=== PATIENT | female | born 1960 | race Caucasian/White ===

== ENCOUNTER 2018-09-14 13:06 | Emergency (ER) | payer BC, MEDICAID ==
[~2018-09-14] VITALS: Ht 162.6 cm; Wt 78.9 kg
--- NOTE | 2018-09-14 13:17 | NUR ---
58 Y/O FEMALE PLACED IN BED 3 C/O RIGHT HAND PAIN SECONDARY TO A FALL.
--- NOTE | 2018-09-14 14:55 | NUR ---
COLD PACK PLACED ON RIGHT HAND. X-RAY RESULTS BACK. NO FRACTURE SEEN. DX - RIGHT HAND SPRAIN. VELCRO SPLINT PLACED ON HAND. ACI GIVEN. PT TO FOLLOW UP WITH PMD IN TWO DAYS. DISCHARGED HOME.
[2018-09-14 14:57] VITALS: BP 160/72
== END 2018-09-14 15:01 | disposition home or self-care (01) ==
LOC: ER 13:09
DX: S63.8X1A Sprain of other part of right wrist and hand, initial encounter (principal); I10 Essential (primary) hypertension; E11.9 Type 2 diabetes mellitus without complications; W01.0XXA Fall on same level from slipping, tripping and stumbling without subsequent striking against object, initial encounter; Y93.89 Activity, other specified; Y92.002 Bathroom of unspecified non-institutional (private) residence as the place of occurrence of the external cause; Y99.8 Other external cause status
CPT/HCPCS: 73130-TC; A4606; Z7610

== ENCOUNTER 2019-07-24 17:50 | Emergency (ER) | payer MEDICAID ==
[~2019-07-24] VITALS: Ht 165.1 cm; Wt 78.9 kg
[2019-07-24 18:13] VITALS: BP 134/87
== END 2019-07-24 19:30 | disposition home or self-care (01) ==
LOC: ER 17:51
DX: B35.4 Tinea corporis (principal); I10 Essential (primary) hypertension; E11.9 Type 2 diabetes mellitus without complications

== ENCOUNTER 2022-07-28 10:44 | Inpatient (IN) | payer MEDICAID ==
[~2022-07-28] VITALS: Ht 157.5 cm; Wt 82.1 kg
--- NOTE | 2022-07-28 10:46 | NUR ---
BIBRA60 FROM HOME, FOUND ALTERED BY FAMILY, PT IS COVID POSITIVE. BLOOD SUGAR 600 ORDER CALLER PER EMS, ATTEMPED TO GET BLOOD GLUCOSE AND GLUCOMETER RED TOO HIGH TO READ. PT IS A&OX0, ABLE TO TRACT WITH HER EYES. PT ATTACHED TO MONITOR. DR ROJO AT BEDSIDE.
--- NOTE | 2022-07-28 10:55 | NUR ---
ADDITIONAL IV ESTABLIHSED L HAND 20G, R HAND 20G. LABD DRAWN AND COLLECTED AT BEDSIDE.
[2022-07-28] MEDS ORDERED: IV NS 0.9% 1,000 ML BAG IV ONE (11:00)
--- NOTE | 2022-07-28 11:10 | NUR ---
[address], 300CC URINE OUTPUT, URINE COLLECTED AND SENT
--- NOTE | 2022-07-28 11:12 | NUR ---
COVFANTASMA TESTC OLLECTED AND SENT
[2022-07-28 11:21] LABS: BASOPHILS # (AUTO) 0.2 K/uL (0.0-0.2); BASOPHILS % (AUTO) 0.7 % (0.0-2.0); EOSINOPHILS % (AUTO) 0.1 % (0.0-6.0); HEMATOCRIT 45 % (33-45); HEMOGLOBIN 13.8 g/dL (11.5-14.8); LYMPHOCYTES # (AUTO) 1.3 K/uL (0.8-4.8); LYMPHOCYTES % (AUTO) 6.1 % (20.0-44.0); MEAN CORPUSCULAR HGB CONC 31 g/dl (31.0-36.0); MEAN CORPUSCULAR VOLUME 97 fL (82-100); MONOCYTES # (AUTO) 1.5 K/uL (0.1-1.30); NEUTROPHILS # (AUTO) 18.6 K/uL (1.8-8.9); NEUTROPHILS % (AUTO) 86.1 % (43.0-81.0); PLATELET COUNT (AUTO) 282 K/uL (150-450); RED BLOOD CELL COUNT(AUTO) 4.61 MIL/uL (4.0-5.2); WHITE BLOOD COUNT (AUTO) 21.6 K/uL (4.3-11.0)
[2022-07-28 11:49] LABS: BILIRUBIN,URINE SMALL (NEGATIVE); COLOR,URINE YELLOW (YELLOW); LEUKOCYTE ESTERASE ,URINE NEGATIVE (NEGATIVE); NITRITE, URINE NEGATIVE (NEGATIVE); PH,URINE 5.5 (5.0-8.0); PROTEIN,URINE 100 mg/dl (NEGATIVE); UGLUCOSE >=1000 mg/dL (NEGATIVE); UROBILINOGEN,URINE 0.2 EU/dL (0.2)
[2022-07-28 11:55] LABS: ABG BASE EXCESS -30.3 mmol/L; ABG OXYGEN SATURATION 96.6 % (92.0-98.5); ABG PCO2 16.4 mmHg (35.0-45.0); ABG PH 6.837 (7.350-7.450); ABG PO2 130.9 mmHg (75.0-100.0); COHb 0.1 % (0.5-1.5); MetHb 0.4 % (0.0-1.5); O2Hb 96.1 % (94.0-97.0); SITE, ABG Left Radial; VENT MODE, BG Room Air
[2022-07-28] MEDS ORDERED: CEFTRIAXONE 1 G in IV D5W 50 ML IV ONE (12:00)
[2022-07-28 12:02] LABS: BACTERIA,URINE 1+ /HPF (None Seen); RBC,URINE 0-2 /HPF (0-2); YEAST,URINE Moderate /HPF (None Seen)
[2022-07-28 12:09] LABS: MAGNESIUM 3.1 mg/dL (1.8-2.4)
[2022-07-28] MEDS ORDERED: CEFTRIAXONE 1GM BAG (ER ONLY) 50 ML IV ONE (12:11)
[2022-07-28 12:24] LABS: ALANINE AMINOTRANSFERASE 39 U/L (12-78); ALBUMIN 3.3 g/dL (3.4-5.0); ALCOHOL, BLOOD < 3 mg/dL (0-0); ALKALINE PHOSPHATASE 136 U/L (46-116); ASPARTATE AMINOTRANSFERASE 37 U/L (15-37); BILIRUBIN,DIRECT 0.3 mg/dL (0.0-0.2); BILIRUBIN,TOTAL 0.8 mg/dL (0.2-1.0); CALCIUM, SERUM 8.7 mg/dL (8.5-10.1); CHLORIDE 93 mmol/L (98-107); CREATININE 2.1 mg/dL (0.6-1.3); POTASSIUM 4.2 mmol/L (3.5-5.1); SODIUM SERUM 134 mmol/L (136-145); UREA NITROGEN, BLOOD 40 mg/dL (7-18)
[2022-07-28 12:42] LABS: CARBON DIOXIDE 5 mmol/L (21-32); GLUCOSE 661 mg/dL (74-106)
[2022-07-28 12:43] LABS: ACETAMINOPHEN < 10 ug/ml (10-30)
[2022-07-28 12:45] LABS: PHOSPHORUS 8.8 mg/dL (2.5-4.9)
[2022-07-28] MEDS ORDERED: LORA-259 PO (12:50)
[2022-07-28] MEDS ORDERED: ICOS1CAP PO (12:50)
[2022-07-28] MEDS ORDERED: QUET200T84 PO (12:50)
[2022-07-28] MEDS ORDERED: FURO20TA4 PO (12:50)
[2022-07-28] MEDS ORDERED: METO50TA16 PO (12:50)
[2022-07-28] MEDS ORDERED: SITA100T PO (12:50)
[2022-07-28] MEDS ORDERED: LISI20TA30 PO (12:50)
[2022-07-28] MEDS ORDERED: METF-440 PO (12:50)
[2022-07-28] MEDS ORDERED: LOSA1TAB39 PO (12:50)
[2022-07-28] MEDS ORDERED: CITA40TA11 PO (12:50)
[2022-07-28] MEDS ORDERED: INSU100I26 SQ (12:50)
[2022-07-28] MEDS ORDERED: IV D5/ 0.9% NACL 1,000 ML IV PRN (13:00)
[2022-07-28] MEDS ORDERED: IV PREMIX NS +20MEQ KCL 1 L IV ONE (13:00)
[2022-07-28] MEDS ORDERED: INSULIN REGULAR, HUMAN 100 UNITS in IV NS 0.9% 100 ML IV PRN ×2 (13:00)
[2022-07-28 13:31] LABS: THYROID STIMULATING HORMONE 0.289 uIU/mL (0.358-3.74)
--- NOTE | 2022-07-28 13:33 | NUR ---
MOVE SHEET SUBMITTED.
[2022-07-28 14:01] LABS: MAGNESIUM 2.9 mg/dL (1.8-2.4)
--- NOTE | 2022-07-28 14:19 | NUR ---
EPIC PAGED, AWAITING HOSPITALIST CALL BACK
--- NOTE | 2022-07-28 14:30 | NUR ---
ACCUCHECK READ TOO HIGH TO READ >600, AWARE. LAB NOTIFIED TO DRAW GLUCOSE.
[2022-07-28] MEDS ORDERED: HYDROCODONE/APAP 5/325MG TABLET PO PRN (15:00)
[2022-07-28] MEDS ORDERED: ZOLPIDEM TARTRATE 5 MG TABLET PO PRN (15:00)
[2022-07-28] MEDS ORDERED: ONDANSETRON HCL/PF 4 MG/2 ML VIAL IVP PRN (15:00)
[2022-07-28] MEDS ORDERED: BLOOD SUGAR DIAGNOSTIC 1 EACH STRIP IN SCH (15:00)
[2022-07-28] MEDS ORDERED: ACETAMINOPHEN 325 MG TABLET PO PRN (15:00)
[2022-07-28] MEDS ORDERED: MAGNESIUM HYDROXIDE 30 ML UDC PO PRN (15:00)
[2022-07-28] MEDS ORDERED: MAG HYDROX/AL HYDROX/SIMETH 30 ML UDC PO PRN (15:00)
[2022-07-28] MEDS ORDERED: IV NS 0.9% 1,000 ML IV PRN (15:00)
[2022-07-28] MEDS ORDERED: Z GUARD REMEDY 4 OZ OINT TP PRN (15:00)
[2022-07-28 15:15] LABS: MAGNESIUM 2.9 mg/dL (1.8-2.4)
--- NOTE | 2022-07-28 15:35 | NUR ---
BLOOD GLUCOSE 542, TITRATED TO EFFECT PER PROTOCOL
[2022-07-28 15:47] LABS: CALCIUM, SERUM 7.7 mg/dL (8.5-10.1); CREATININE 2.1 mg/dL (0.6-1.3); POTASSIUM 5.4 mmol/L (3.5-5.1)
[2022-07-28 15:50] LABS: PHOSPHORUS 7.3 mg/dL (2.5-4.9)
--- NOTE | 2022-07-28 17:09 | NUR ---
SON RIGOBERTO CALLED AND LEFT CONTACT # [phone]
[2022-07-28 18:17] LABS: MAGNESIUM 2.5 mg/dL (1.8-2.4); PHOSPHORUS 2.5 mg/dL (2.5-4.9)
--- NOTE | 2022-07-28 20:00 | NUR ---
RECEIVED PT IN ROOM 5. PT IS AAOX0, ON BIPAP SETTINGS: IPAP 15, RATE 12, ITIME 0.80, EPAP 10, O2 30%. PRAJAPATI CATH INPLACE. CONNECTED TO MONITOR. ON INSULIN DRIP AT 7.5 VIA IV PUMP. PT IS COVID POSITIVE ISOLATION PRECAUTIONS IN PLACE. WILL CONTINUE TO MONITOR.
--- NOTE | 2022-07-28 20:00 | NUR ---
HANS COMPLETED, RESULTS GIVEN TO ZHENG COLE
[2022-07-28 20:09] LABS: ABG BASE EXCESS -25.8 mmol/L; ABG PCO2 14.2 mmHg (35.0-45.0); ABG PH 7.009 (7.350-7.450); ABG PO2 182.9 mmHg (75.0-100.0); COHb 0.3 % (0.5-1.5); MetHb 0.6 % (0.0-1.5); O2Hb 97.9 % (94.0-97.0); SITE, ABG Right Radial; VENT MODE, BG BIPAP 15/5 RR12 FIO2 30
[2022-07-28] MEDS ORDERED: SODIUM BICARBONATE SYR 50 MEQ/50 ML DISP.SYRIN ONE (20:40)
--- NOTE | 2022-07-28 20:56 | NUR ---
ACCUCHECK: 412, TITRATED TO 6.18 PER PROTOCOL
[2022-07-28] MEDS ORDERED: HEPARIN SODIUM, PORCINE 5000 UNITS/1 ML VIAL SQ SCH (21:00)
[2022-07-28] MEDS ORDERED: HEPARIN SODIUM, PORCINE 5000 UNITS/1 ML VIAL ONE (21:05)
--- NOTE | 2022-07-28 21:21 | NUR ---
REPORT GIVEN TO ISABEL OLEARY FOR JOSH
[2022-07-28] MEDS ORDERED: IV NS 0.9% 1,000 ML IV ONE (21:30)
[2022-07-28] MEDS ORDERED: SODIUM BICARBONATE SYR 50 MEQ/50 ML DISP.SYRIN IV ONE (21:30)
[2022-07-28] MEDS ORDERED: DEXTROSE 50%-WATER 50 ML DISP.SYRIN IV PRN (22:00)
--- NOTE | 2022-07-28 22:10 | NUR ---
RT Pt transferred to ICU #263 on NRB 15 lpm using ACLS protocol , pt placed back on bipap with alarms on and audible, plugged into red outlet and ambu bag at bedside.
[2022-07-28] MEDS: BLOOD SUGAR DIAGNOSTIC 1 EACH STRIP IN SCH ×2 (22:15→23:03)
[2022-07-28] MEDS: IV NS 0.9% 1,000 ML IV PRN (22:16)
[2022-07-28] MEDS: INSULIN REGULAR, HUMAN 100 UNIT in IV NS 0.9% 99 ML IV PRN ×2 (22:19)
[2022-07-28 22:30] VITALS: BP 141/86
[2022-07-28] MEDS ORDERED: INSULIN REGULAR, HUMAN 100 UNIT/ML 3 ML VIAL ONE (22:37)
--- NOTE | 2022-07-28 22:40 | NUR ---
RN NOTE Received a 61 year old female. patient is AOX0. Arousable to touch. Unable to answer questions at this time. lethargic. Breathing tachypneic. Patient placed on bipap. tolerating well with o2 saturation of 100 percent. Skin is cool and pale. right forearm 20g and left forearm 20g. intact. On IVF and insulin drip. indwelling rizo catheter draining alexander colored urine by gravity. skin assessment done. Turned and repositioned. bed low, in locked position. will continue to monitor.
[2022-07-28 23:06] LABS: CALCIUM, SERUM 7.5 mg/dL (8.5-10.1); POTASSIUM 3.7 mmol/L (3.5-5.1)
[2022-07-29] VITALS (32 sets, daily range): BP systolic 92–186; BP diastolic 28–129
[2022-07-29] MEDS: BLOOD SUGAR DIAGNOSTIC 1 EACH STRIP IN SCH ×24 (00:12→22:55)
[2022-07-29 03:19] LABS: CREATININE 1.4 mg/dL (0.6-1.3)
[2022-07-29 03:45] LABS: POTASSIUM 2.3 mmol/L (3.5-5.1)
[2022-07-29] MEDS: IV NS 0.9% 1,000 ML IV PRN ×3 (04:43→20:13)
[2022-07-29 05:11] LABS: BASOPHILS # (AUTO) 0.1 K/uL (0.0-0.2); BASOPHILS % (AUTO) 0.4 % (0.0-2.0); HEMATOCRIT 42 % (33-45); LYMPHOCYTES # (AUTO) 1.1 K/uL (0.8-4.8); LYMPHOCYTES % (AUTO) 6.6 % (20.0-44.0); MEAN CORPUSCULAR HGB CONC 31 g/dl (31.0-36.0); MEAN CORPUSCULAR VOLUME 98 fL (82-100); MONOCYTES # (AUTO) 1.1 K/uL (0.1-1.30); MONOCYTES % (AUTO) 6.8 % (2.0-12.0); NEUTROPHILS # (AUTO) 14.2 K/uL (1.8-8.9); NEUTROPHILS % (AUTO) 86.2 % (43.0-81.0); RED BLOOD CELL COUNT(AUTO) 4.28 MIL/uL (4.0-5.2); WHITE BLOOD COUNT (AUTO) 16.4 K/uL (4.3-11.0)
[2022-07-29 05:36] LABS: PLATELET COUNT (AUTO) 35 K/uL (150-450)
[2022-07-29 05:37] LABS: MAGNESIUM 2.5 mg/dL (1.8-2.4); PHOSPHORUS 1.6 mg/dL (2.5-4.9)
--- NOTE | 2022-07-29 05:57 | NUR ---
RT *Late Entry* Pt recvd in ER Bed #5 on Bipap 15/09 rate 12, Fio2 30% settings. Stat ABG completed. Transferred pt to ICU bed 263 at 22:00. Addendum: 07/29/22 at 0606 by ZULEMA WILSON RT Bipap settings changed to 15 rate 12, 30% in ICU. No respiratory distress noted.
[2022-07-29] MEDS: POTASSIUM CL. PREMIX PERIPHER. 50 ML IV SCH ×8 (06:01→13:35)
--- NOTE | 2022-07-29 08:00 | NUR ---
rn notes received patient on bipap 15/09, fio2-30%, patient confused. ,RT with ther patient at this time, and changed to the NC @4l, . iv access on left and right FA intact, infusing insulin 4 u, ns@150ml/hr, ans kcl 50ml/hr . rizo draining via gravity. position patient,, keep hob elevated. assist turn and reposition. will follow up.
--- NOTE | 2022-07-29 08:03 | NUR ---
PT. IS AWAKE AND FOLLOW COMMANDS PLACE INTO 4 LPM O2 FLOW VIA NASAL CANNULA. BIPAP ON STAND BY @ BEDSIDE. SPO2 99% HR 95 BPM RR 22 BPM Addendum: 07/29/22 at 0805 by JORGE MANDEL RT Amended: Links added.
[2022-07-29] MEDS ORDERED: PANTOPRAZOLE 40 MG VIAL IV SCH (09:00)
--- NOTE | 2022-07-29 09:30 | NUR ---
RN NOTES PATIENT GET INSERTED MIDLINE ON FREDO.
[2022-07-29 11:15] LABS: CALCIUM, SERUM 8.1 mg/dL (8.5-10.1); CREATININE 2.2 mg/dL (0.6-1.3); POTASSIUM 3.1 mmol/L (3.5-5.1)
[2022-07-29 11:29] LABS: CALCIUM, SERUM 8.1 mg/dL (8.5-10.1); CREATININE 2.2 mg/dL (0.6-1.3); POTASSIUM 3.1 mmol/L (3.5-5.1)
[2022-07-29 12:09] LABS: ABG BASE EXCESS -14.6 mmol/L; ABG PCO2 22.7 mmHg (35.0-45.0); ABG PH 7.276 (7.350-7.450); ABG PO2 91.7 mmHg (75.0-100.0); AaDO2 145.8 mmHg; COHb 0.4 % (0.5-1.5); MetHb 0.3 % (0.0-1.5); O2Hb 96.3 % (94.0-97.0); SITE, ABG Right Radial; VENT MODE, BG NASAL CANNULA
[2022-07-29] MEDS: CEFTRIAXONE 1 G in IV D5W 50 ML IV SCH (12:28)
[2022-07-29 12:38] LABS: BASOPHILS # (AUTO) 0.1 K/uL (0.0-0.2); BASOPHILS % (AUTO) 0.5 % (0.0-2.0); HEMATOCRIT 37 % (33-45); HEMOGLOBIN 12.5 g/dL (11.5-14.8); LYMPHOCYTES # (AUTO) 0.7 K/uL (0.8-4.8); MEAN CORPUSCULAR HGB CONC 34 g/dl (31.0-36.0); MEAN CORPUSCULAR VOLUME 89 fL (82-100); MONOCYTES # (AUTO) 1.2 K/uL (0.1-1.30); MONOCYTES % (AUTO) 7.9 % (2.0-12.0); NEUTROPHILS # (AUTO) 12.7 K/uL (1.8-8.9); NEUTROPHILS % (AUTO) 86.6 % (43.0-81.0); PLATELET COUNT (AUTO) 149 K/uL (150-450); RED BLOOD CELL COUNT(AUTO) 4.19 MIL/uL (4.0-5.2); WHITE BLOOD COUNT (AUTO) 14.7 K/uL (4.3-11.0)
[2022-07-29 15:36] LABS: BASOPHILS % (AUTO) 0.2 % (0.0-2.0); EOSINOPHILS % (AUTO) 0.1 % (0.0-6.0); HEMATOCRIT 39 % (33-45); HEMOGLOBIN 12.7 g/dL (11.5-14.8); LYMPHOCYTES # (AUTO) 0.5 K/uL (0.8-4.8); LYMPHOCYTES % (AUTO) 3.6 % (20.0-44.0); MEAN CORPUSCULAR HGB CONC 33 g/dl (31.0-36.0); MEAN CORPUSCULAR VOLUME 92 fL (82-100); MONOCYTES # (AUTO) 1.2 K/uL (0.1-1.30); MONOCYTES % (AUTO) 8.7 % (2.0-12.0); NEUTROPHILS # (AUTO) 12.3 K/uL (1.8-8.9); NEUTROPHILS % (AUTO) 87.4 % (43.0-81.0); PLATELET COUNT (AUTO) 133 K/uL (150-450); RED BLOOD CELL COUNT(AUTO) 4.23 MIL/uL (4.0-5.2); WHITE BLOOD COUNT (AUTO) 14.1 K/uL (4.3-11.0)
[2022-07-29 15:45] LABS: CALCIUM, SERUM 7.8 mg/dL (8.5-10.1); CREATININE 2.2 mg/dL (0.6-1.3); POTASSIUM 3.5 mmol/L (3.5-5.1)
[2022-07-29] MEDS ORDERED: NEUTRA PHOS 1 POWD.PACKET PO ONE (16:00)
[2022-07-29 16:07] LABS: C-REACTIVE PROTEIN 6.3 mg/dL (0.0-0.9)
[2022-07-29 16:12] LABS: D-DIMER 5.48 mg/L(FEU (0.17-0.50)
--- NOTE | 2022-07-29 18:48 | NUR ---
rn notes patient still confused , bs-178 mg/dl, infusing insulin drip per protocol, and ns @150 ml/hr. reinserted new rizo catheter, US of kidney, and bladder done. urine output was 500ml, and x2 Bm. needs attended and anticipated. call light within to reach, bed is lacked. endorsed oncoming nurse jacques.
--- NOTE | 2022-07-29 19:15 | NUR ---
RN OPENING NOTES RECEIVED PATIENT ON BED, CONFUSED, ON NASAL CANULA @ 4LPM SATING WITH 96%. AFEBRILE. PATIENT WITH FREDO MID LINE AND RIGHT HAND #20 PERIPHERAL LINE, PATENT, INTACT FLUSHED WITH NS, NO S/S OF INFILTRATION NOTED. WITH IVF NS @ 150 ML/HR. INSULIN DRIPS CURRENTLY @ 2.67 U/HR. PATIENT ON NPO. PRAJAPATI CATHETER PATENT INTACT DRAINING CLEAR YELLOW URINE VIA GRAVITY. ALL SAFETY PRECAUTION PROVIDED. REPOSITION Q2HRS. BED IN LOWEST POSITION. LOCKED. BED ALARM ARMED. CONTINUE TO MONITOR.
[2022-07-29] MEDS: FAMOTIDINE/PF INJ 20 MG/2 ML VIAL IV SCH (20:48)
[2022-07-29 20:55] LABS: CALCIUM, SERUM 7.4 mg/dL (8.5-10.1); CREATININE 2.1 mg/dL (0.6-1.3); POTASSIUM 3.1 mmol/L (3.5-5.1)
--- NOTE | 2022-07-29 21:15 | NUR ---
RN NOTES NOTIFIED MIRIAM CONNOLLY, REGARDING PATIENT LATEST BMP, PER ESME CHANGED IVF NS @ 150ML/HR TO D5 1/2 NS WITH 20MEQ KCL @ 150 ML/HR NOTED AND CARRIED OUT.
[2022-07-29] MEDS ORDERED: D5 IV ONE (21:33)
[2022-07-29] MEDS ORDERED: [UNRECOGNIZED DRUG - OTHER] IV ONE (21:33)
[2022-07-29] MEDS ORDERED: KCL IV ONE (21:33)
[2022-07-29] MEDS: Potassium Chloride 20 MEQ in IV D5/0.45 NACL 1,000 ML IV PRN (21:39)
[2022-07-29] MEDS: INSULIN REGULAR, HUMAN 100 UNIT in IV NS 0.9% 99 ML IV PRN ×2 (22:47)
[2022-07-30] VITALS (47 sets, daily range): BP systolic 116–203; BP diastolic 62–114
[2022-07-30] MEDS: BLOOD SUGAR DIAGNOSTIC 1 EACH STRIP IN SCH ×24 (00:07→23:04)
[2022-07-30 01:44] LABS: CALCIUM, SERUM 7.4 mg/dL (8.5-10.1); POTASSIUM 2.9 mmol/L (3.5-5.1)
--- NOTE | 2022-07-30 02:00 | NUR ---
RN NOTES NOTIFIED MIRIAM CONNOLLY REGARDING LATEST BMP WITH NEW ORDER KEEP INSULIN DRIP TO 2 UNITS/HR, KCL 20 MEQ IVP FOR 2HRS, BMP AFTER 4 HRS. NOTED AND CARRIED OUT
[2022-07-30] MEDS: POTASSIUM CL. PREMIX PERIPHER. 50 ML IV SCH ×6 (02:30→23:24)
[2022-07-30] MEDS: Potassium Chloride 20 MEQ in IV D5/0.45 NACL 1,000 ML IV PRN ×3 (04:40→17:57)
[2022-07-30 05:14] LABS: BASOPHILS % (AUTO) 0.1 % (0.0-2.0); HEMATOCRIT 32 % (33-45); HEMOGLOBIN 10.7 g/dL (11.5-14.8); LYMPHOCYTES # (AUTO) 0.5 K/uL (0.8-4.8); LYMPHOCYTES % (AUTO) 4.7 % (20.0-44.0); MEAN CORPUSCULAR HGB CONC 34 g/dl (31.0-36.0); MEAN CORPUSCULAR VOLUME 88 fL (82-100); MONOCYTES # (AUTO) 0.9 K/uL (0.1-1.30); MONOCYTES % (AUTO) 7.9 % (2.0-12.0); NEUTROPHILS # (AUTO) 9.7 K/uL (1.8-8.9); NEUTROPHILS % (AUTO) 87.3 % (43.0-81.0); PLATELET COUNT (AUTO) 116 K/uL (150-450); RED BLOOD CELL COUNT(AUTO) 3.58 MIL/uL (4.0-5.2); WHITE BLOOD COUNT (AUTO) 11.1 K/uL (4.3-11.0)
[2022-07-30 05:40] LABS: CALCIUM, SERUM 7.5 mg/dL (8.5-10.1); CREATININE 2.1 mg/dL (0.6-1.3); MAGNESIUM 2.1 mg/dL (1.8-2.4); POTASSIUM 3.2 mmol/L (3.5-5.1)
[2022-07-30 05:47] LABS: PHOSPHORUS 0.8 mg/dL (2.5-4.9)
--- NOTE | 2022-07-30 06:05 | NUR ---
RN NOTES NOTIFIED MIRIAM CONNOLLY REGARDING LATEST BMP WITH NEW ORDER CONTINUE TO USE THE INSULIN PROTOCOL, KCL 20 MEQ IVP FOR 2HRS NOTED AND CARRIED OUT
--- NOTE | 2022-07-30 06:25 | NUR ---
RN NOTES PHARMACY WILL REPLACED PHOSPHORUS, SPOKE TO LUCY.
--- NOTE | 2022-07-30 08:00 | NUR ---
RN NOTES RECEIVED PATIENT A/A/O X1, KYRGYZ SPEAKER, NO ACUTE RESPIRATORY DISTRESS, ON O2-4LNC, PATIENT COUGHING, NO SECRETION NOTED , TURN AND REPOSTION SELF. IV ACCESS ON FREDO MIDLINE INTACT. INFUSING INSULIN DRIP 4.81 U, BS-321,, AND ALSO INFUSING NS WITH 20MEQ OF KCL @ 150 ML/HR. REPLACING KCL 50 ML/HR INTACT. PRAJAPATI DRAINING VIA GRAVITY. BED ALARM ON, PATIENT ON ISOLATION PRECAUTION. CALL LIGHT WITHIN TO REACH. WILL FOLLOW UP.
[2022-07-30 08:06] LABS: IMMUNOGLOBULIN A, SERUM 195 mg/dL (87-352); IMMUNOGLOBULIN G, SERUM 607 mg/dL (586-1602); IMMUNOGLOBULIN M, SERUM 84 mg/dL (26-217)
[2022-07-30] MEDS: POTASSIUM PHOSPHATE MM 7.5 MMOL in IV NS 0.9% 100 ML IV SCH ×2 (08:42→12:41)
[2022-07-30] MEDS: FAMOTIDINE/PF INJ 20 MG/2 ML VIAL IV SCH (08:58)
[2022-07-30 09:32] LABS: CALCIUM, SERUM 7.8 mg/dL (8.5-10.1); POTASSIUM 3.6 mmol/L (3.5-5.1)
[2022-07-30 10:07] LABS: *ANA ANTI-CENTROMERE B AB <0.2 AI (0.0-0.9); *ANA ANTI-DNA(DS) AB, QN <1 IU/mL (0-9); *ANA ANTI-JO-1 <0.2 AI (0.0-0.9); *ANA ANTICHROMATIN ANTIBODY <0.2 AI (0.0-0.9); *ANA RNP ANTIBODIES <0.2 AI (0.0-0.9); *ANA SJOGREN'S ANTI-SS-A <0.2 AI (0.0-0.9); *ANA SJOGREN'S ANTI-SS-B <0.2 AI (0.0-0.9); *ANAANTI-SCLERODERMA-70 AB <0.2 AI (0.0-0.9); *ANASMITH AB <0.2 AI (0.0-0.9)
[2022-07-30 10:12] LABS: BILIRUBIN,URINE NEGATIVE (NEGATIVE); COLOR,URINE YELLOW (YELLOW); LEUKOCYTE ESTERASE ,URINE NEGATIVE (NEGATIVE); NITRITE, URINE NEGATIVE (NEGATIVE); PROTEIN,URINE TRACE mg/dl (NEGATIVE); UGLUCOSE 100 MG/DL mg/dL (NEGATIVE); UROBILINOGEN,URINE 0.2 EU/dL (0.2)
--- NOTE | 2022-07-30 10:29 | NUR ---
rn notes patient bp- 180/93, p-68, get TO order from hospitalist Dr cornell hydralazine 10ml iv push prn bps->160. order taken and carried out.
[2022-07-30 10:55] LABS: BACTERIA,URINE Few /HPF (None Seen); RBC,URINE 21-50 /HPF (0-2); SQUAMOUS EPITHELIAL CELL,UR Few /HPF (None Seen); URIC ACID CRYSTALS,URINE Few /HPF (None Seen); YEAST,URINE Few /HPF (None Seen)
[2022-07-30] MEDS: hydrALAZINE HCL IV 20 MG VIAL IV PRN ×2 (11:08→22:16)
--- NOTE | 2022-07-30 11:08 | NUR ---
rn notes administered hydralazine 10ml prn iv push , bp-182/82, p-84, will follow up.
[2022-07-30] MEDS: FLUCONAZOLE IN NS 100 MG in PREMIX 1 EA IV SCH ×2 (11:29)
[2022-07-30] MEDS: CEFTRIAXONE 1 G in IV D5W 50 ML IV SCH (12:04)
[2022-07-30 12:43] LABS: CALCIUM, SERUM 7.8 mg/dL (8.5-10.1); CREATININE 1.9 mg/dL (0.6-1.3); POTASSIUM 3.6 mmol/L (3.5-5.1)
[2022-07-30 13:07] LABS: *SPE ALPHA-1-GLOBULIN 0.2 g/dL (0.0-0.4); *SPE ALPHA-2-GLOBULIN 0.9 g/dL (0.4-1.0); *SPE BETA GLOBULIN 0.6 g/dL (0.7-1.3); *SPE M-SPIKE Not Observed g/dL (Not Observed)
--- NOTE | 2022-07-30 15:36 | NUR ---
RN NOTES BP-184/84, P-86, CALLED Dr NAZARIO AND GET NEW ORDER CLONIDINE 0.1MG PO PRN Q8HR BP>160. ORDER TAKEN AND CARRIED OUT.
[2022-07-30] MEDS: CLONIDINE HCL 0.1 MG TABLET PO PRN (16:19)
[2022-07-30] MEDS: APIXABAN 2.5 MG TABLET PO SCH (16:19)
--- NOTE | 2022-07-30 16:20 | NUR ---
rn notes t-100.6F administered Tylenol 650 mg po prn, and bp 190/91, p-97 administered clonidine 0.1 mg po prn as well, administered cooling bath. stool for occult blood collected.
--- NOTE | 2022-07-30 18:50 | NUR ---
rn notes medication were administered for bp effective, and t-98.5F axiliary, due medication administered. no acute respiratory distress. patient still on insulin drip, and ns With 20meq of kcl infusing gustavo intact. rizo draining light yellow output 1500ml. assist turn and reposition q 2 hr. endorsed oncoming nurse follow plan of care.
--- NOTE | 2022-07-30 19:15 | NUR ---
RN OPENING NOTES RECEIVED PATIENT ON BED, CONFUSED, ON NASAL CANULA @ 4LPM SATING WITH 96%. RESPIRATORY EVEN AND UNLABORED, NO SOB NOTED. PATIENT WITH FREDO MID LINE AND RIGHT HAND #20 PERIPHERAL LINE, PATENT, INTACT FLUSHED WITH NS, NO S/S OF INFILTRATION NOTED. WITH IVF D5 1/2NS+20MEQ KCL @ 150 ML/HR. INSULIN DRIPS CURRENTLY @ 5.53 U/HR. PATIENT ON NPO. PRAJAPATI CATHETER PATENT INTACT DRAINING CLEAR YELLOW URINE VIA GRAVITY. ALL SAFETY PRECAUTION PROVIDED. REPOSITION Q2HRS. BED IN LOWEST POSITION. LOCKED. BED ALARM ARMED. CONTINUE TO MONITOR.
--- NOTE | 2022-07-30 21:00 | NUR ---
RN NOTES NOTIFIED DNP ESME CONNOLLY REGARDING LATEST BMP WITH NEW ORDER , KCL 20 MEQ IVP FOR 2HRS NOTED AND CARRIED OUT
[2022-07-30 21:07] LABS: CALCIUM, SERUM 7.5 mg/dL (8.5-10.1); CREATININE 1.9 mg/dL (0.6-1.3)
[2022-07-30 21:35] LABS: FERRITIN 512 ng/mL (8-388)
[2022-07-30] MEDS ORDERED: VANCOMYCIN 1 GM in IV D5W 250 ML IV ONE (21:47)
[2022-07-30] MEDS ORDERED: VANCOMYCIN 1 GM VIAL ONE (22:08)
--- NOTE | 2022-07-30 22:15 | NUR ---
RN NOTES PATIENT NOTED WITH BP-181/94, PULSE-93. HYDRALAZINE 10MH IV GIVEN.
--- NOTE | 2022-07-30 22:30 | NUR ---
ANIRUDH RUEDA BP RECHECKED AND OBTAINED 123/22 PULSE-78. Addendum: 07/31/22 at 0332 by BROOKLYN MCKEON RN BP 123/66 PULSE-78.
[2022-07-30 22:39] LABS: IRON, SERUM 68 ug/dl (50-175); TOTAL IRON BINDING CAPACITY 132 ug/dl (250-450)
[2022-07-31] VITALS (34 sets, daily range): BP systolic 122–171; BP diastolic 56–93
[2022-07-31] MEDS: BLOOD SUGAR DIAGNOSTIC 1 EACH STRIP IN SCH ×24 (00:01→23:06)
[2022-07-31] MEDS: INSULIN REGULAR, HUMAN 100 UNIT in IV NS 0.9% 99 ML IV PRN ×2 (00:07)
[2022-07-31 00:13] LABS: CALCIUM, SERUM 7.3 mg/dL (8.5-10.1); CREATININE 1.9 mg/dL (0.6-1.3); POTASSIUM 3.2 mmol/L (3.5-5.1)
[2022-07-31] MEDS: Potassium Chloride 20 MEQ in IV D5/0.45 NACL 1,000 ML IV PRN (01:04)
--- NOTE | 2022-07-31 01:30 | NUR ---
RN NOTES NOTIFIED DNP ESME CONNOLLY REGARDING LATEST POTASSIUM-3.2 WITH NEW ORDER , KCL 20 MEQ IVP FOR 2HRS NOTED AND CARRIED OUT
[2022-07-31] MEDS ORDERED: IV PREMIX NS +20MEQ KCL 1 L IV ONE (02:08)
[2022-07-31] MEDS: POTASSIUM CL. PREMIX PERIPHER. 50 ML IV SCH ×2 (02:11→03:17)
[2022-07-31] MEDS: Potassium Chloride 20 MEQ in IV NS 0.9% 1,000 ML IV PRN ×3 (02:12→16:07)
[2022-07-31 02:24] LABS: CALCIUM, SERUM 7.7 mg/dL (8.5-10.1)
--- NOTE | 2022-07-31 02:40 | NUR ---
RN NOTES PATIENT NOTED WITH BP-183/86, PULSE-86, CLONIDINE 0.1 PO GIVEN.
[2022-07-31] MEDS: CLONIDINE HCL 0.1 MG TABLET PO PRN ×2 (02:42→10:52)
--- NOTE | 2022-07-31 03:30 | NUR ---
RN NOTES BP RECHECKED AND OBTAINED 164/69 PULSE-70.
--- NOTE | 2022-07-31 04:20 | NUR ---
RN NOTES UNABLE TO DRAW BLOOD FROM MIDLINE, NOTIFIED LABS TO SEND MANAGER CORPORATE TO DRAW BLOOD.
[2022-07-31 05:46] LABS: OCCULT BLOOD STOOL POSITIVE (NEGATIVE)
[2022-07-31 06:13] LABS: BASOPHILS % (AUTO) 0.2 % (0.0-2.0); EOSINOPHILS % (AUTO) 0.1 % (0.0-6.0); HEMATOCRIT 33 % (33-45); HEMOGLOBIN 11.3 g/dL (11.5-14.8); LYMPHOCYTES # (AUTO) 0.8 K/uL (0.8-4.8); MEAN CORPUSCULAR HGB CONC 35 g/dl (31.0-36.0); MEAN CORPUSCULAR VOLUME 87 fL (82-100); MONOCYTES # (AUTO) 0.7 K/uL (0.1-1.30); MONOCYTES % (AUTO) 5.8 % (2.0-12.0); NEUTROPHILS # (AUTO) 9.9 K/uL (1.8-8.9); NEUTROPHILS % (AUTO) 86.9 % (43.0-81.0); PLATELET COUNT (AUTO) 126 K/uL (150-450); RED BLOOD CELL COUNT(AUTO) 3.73 MIL/uL (4.0-5.2); WHITE BLOOD COUNT (AUTO) 11.3 K/uL (4.3-11.0)
[2022-07-31] MEDS: hydrALAZINE HCL IV 20 MG VIAL IV PRN ×2 (06:30→18:42)
--- NOTE | 2022-07-31 06:30 | NUR ---
RN NOTES PATIENT NOTED WITH BP-166/80, PULSE-83. HYDRALAZINE 10MG IV GIVEN.
--- NOTE | 2022-07-31 07:00 | NUR ---
RN NOTES BP RECHECKED AND OBTAINED 131/66 PULSE-92.
[2022-07-31 07:05] LABS: CREATININE 1.8 mg/dL (0.6-1.3); MAGNESIUM 1.9 mg/dL (1.8-2.4); PHOSPHORUS 1.5 mg/dL (2.5-4.9); POTASSIUM 3.3 mmol/L (3.5-5.1)
--- NOTE | 2022-07-31 08:00 | NUR ---
RN NOTES RECEIVED PATIENT AWAKE, A/O X2, BUT DOES NOT REMEMBER WHAT HAPPENED WITH HER, WHY SHE GET HOSPITALIZED, ASKS WATER TO DRINK. BS-230 MG/DL, PATIENT ON INSULIN DRIP TITRATED ON 3.4 u. PATIENT REFUSED PAIN, TIERED, HAS NOT ENERGY, ASKING TO SPEAK WITH FAMILY MEMBERS WELL. DUE MEDICATION ADMINISTERED, FOLLOWING LAB RESULTS. CALL LIGHT WITHIN TO REACH PRAJAPATI DRAINING VIA GRAVITY. AUDIO NARRATOR WITH THE PATIENT FOR SCHEDULED BMP BLOOD TEST. WILL FOLLOW UP.
[2022-07-31 08:36] LABS: CREATININE 1.6 mg/dL (0.6-1.3); POTASSIUM 3.3 mmol/L (3.5-5.1)
[2022-07-31 08:39] LABS: ABG BASE EXCESS -9.4 mmol/L; ABG OXYGEN SATURATION 97.6 % (92.0-98.5); ABG PCO2 20.2 mmHg (35.0-45.0); ABG PH 7.421 (7.350-7.450); ABG PO2 101.7 mmHg (75.0-100.0); AaDO2 131.6 mmHg; COHb 0.5 % (0.5-1.5); MetHb 0.1 % (0.0-1.5); SITE, ABG Right Radial; VENT MODE, BG nasal cannula
[2022-07-31] MEDS: FAMOTIDINE/PF INJ 20 MG/2 ML VIAL IV SCH ×2 (09:04→21:34)
[2022-07-31] MEDS: APIXABAN 2.5 MG TABLET PO SCH ×2 (09:05→16:10)
[2022-07-31] MEDS ORDERED: POTASSIUM CL. PREMIX PERIPHER. 50 ML IV SCH (09:30)
--- NOTE | 2022-07-31 10:52 | NUR ---
rn notes administered Catapres 0.1 mg po prn for bp 190/91, p-97. will follow up.
--- NOTE | 2022-07-31 11:34 | NUR ---
RN NOTES MEDICATION WERE ADMINISTERED FOR BP EFFECTIVE BP 110/54, P-75. WILL MONITORING.
[2022-07-31] MEDS: CEFTRIAXONE 1 G in IV D5W 50 ML IV SCH (12:01)
[2022-07-31] MEDS: FLUCONAZOLE IN NS 100 MG in PREMIX 1 EA IV SCH ×2 (12:01)
[2022-07-31 12:48] LABS: CALCIUM, SERUM 7.6 mg/dL (8.5-10.1); CREATININE 1.5 mg/dL (0.6-1.3); POTASSIUM 3.5 mmol/L (3.5-5.1)
[2022-07-31 13:01] LABS: C-REACTIVE PROTEIN 6.9 mg/dL (0.0-0.9)
[2022-07-31 15:25] LABS: CALCIUM, SERUM 7.5 mg/dL (8.5-10.1); CREATININE 1.5 mg/dL (0.6-1.3); POTASSIUM 3.6 mmol/L (3.5-5.1)
[2022-07-31] MEDS: DEXAMETHASONE SOD PHOSPHATE 10 MG/ML VIAL IV SCH (15:54)
[2022-07-31] MEDS: METOPROLOL TARTRATE 50 MG TABLET PO SCH (15:58)
[2022-07-31 16:18] LABS: D-DIMER 5.45 mg/L(FEU (0.17-0.50)
[2022-07-31] MEDS ORDERED: Medication Not On Formulary EA (Icosapent Ethyl (Vascepa) 1 GM) PO SCH (17:00)
[2022-07-31] MEDS ORDERED: K PHOS NEUTRAL 250 MG TABLET PO ONE (17:30)
--- NOTE | 2022-07-31 18:42 | NUR ---
rn notes bp-162/81, p-62, administered hydralazine 10mg/ml iv push, bs-158 mg/dl , stil on insulin drip, and NS with kcl @150ml/hr. pm care done, patient awake, a/o x2/3, refused pain, urine output was 750ml. bmx2. patient able to turn and reposition self in the bed.patient state "I wants to go home, and wants some coffee". educated patient about her condition, patient verbalized understanding. call light within to reach. endorsed oncoming nurse follow plan of care.
--- NOTE | 2022-07-31 19:10 | NUR ---
RN OPENING NOTES RECEIVED PATIENT ON BED, A/O X 2-3, ON NASAL CANULA @ 4LPM SATING WITH 96%. RESPIRATORY EVEN AND UNLABORED, NO SOB NOTED. NOT IN DISTRESS. PATIENT WITH FREDO MID LINE AND RIGHT HAND #20 PERIPHERAL LINE, PATENT, INTACT FLUSHED WITH NS, NO S/S OF INFILTRATION NOTED. WITH IVF NS+20MEQ KCL @ 150 ML/HR. INSULIN DRIPS CURRENTLY @ 2.37 U/HR. PATIENT ON NPO. PRAJAPATI CATHETER PATENT INTACT DRAINING CLEAR YELLOW URINE VIA GRAVITY. ALL SAFETY PRECAUTION PROVIDED. REPOSITION Q2HRS. BED IN LOWEST POSITION. LOCKED. BED ALARM ARMED. CONTINUE TO MONITOR.
[2022-07-31] MEDS: IV D5/0.45 NACL 1,000 ML IV PRN (21:31)
[2022-07-31 21:42] LABS: CALCIUM, SERUM 7.3 mg/dL (8.5-10.1); CREATININE 1.4 mg/dL (0.6-1.3); POTASSIUM 3.6 mmol/L (3.5-5.1)
[2022-08-01] VITALS (13 sets, daily range): BP systolic 133–169; BP diastolic 67–84
[2022-08-01] MEDS: BLOOD SUGAR DIAGNOSTIC 1 EACH STRIP IN SCH ×15 (00:02→22:29)
[2022-08-01] MEDS: INSULIN REGULAR, HUMAN 100 UNIT in IV NS 0.9% 99 ML IV PRN ×2 (00:12)
[2022-08-01 02:02] LABS: CALCIUM, SERUM 7.4 mg/dL (8.5-10.1); CREATININE 1.4 mg/dL (0.6-1.3); POTASSIUM 3.4 mmol/L (3.5-5.1)
[2022-08-01] MEDS: hydrALAZINE HCL IV 20 MG VIAL IV PRN ×2 (02:03→10:42)
--- NOTE | 2022-08-01 02:03 | NUR ---
RN NOTES PATIENT NOTED WITH BP-164/75, PULSE-90. HYDRALAZINE 10MG IV GIVEN.
[2022-08-01] MEDS ORDERED: POTASSIUM CL. PREMIX PERIPHER. 50 ML IV SCH (02:30)
--- NOTE | 2022-08-01 02:45 | NUR ---
RN NOTES BP RECHECKED AND OBTAINED 141/64 PULSE-100.
[2022-08-01 05:35] LABS: BASOPHILS % (AUTO) 0.1 % (0.0-2.0); HEMATOCRIT 35 % (33-45); HEMOGLOBIN 11.5 g/dL (11.5-14.8); LYMPHOCYTES # (AUTO) 0.4 K/uL (0.8-4.8); LYMPHOCYTES % (AUTO) 3.1 % (20.0-44.0); MEAN CORPUSCULAR HGB CONC 33 g/dl (31.0-36.0); MEAN CORPUSCULAR VOLUME 92 fL (82-100); MONOCYTES # (AUTO) 0.3 K/uL (0.1-1.30); MONOCYTES % (AUTO) 2.5 % (2.0-12.0); NEUTROPHILS # (AUTO) 11.9 K/uL (1.8-8.9); NEUTROPHILS % (AUTO) 94.3 % (43.0-81.0); PLATELET COUNT (AUTO) 133 K/uL (150-450); RED BLOOD CELL COUNT(AUTO) 3.85 MIL/uL (4.0-5.2); WHITE BLOOD COUNT (AUTO) 12.6 K/uL (4.3-11.0)
[2022-08-01] MEDS: IV D5/0.45 NACL 1,000 ML IV PRN (06:07)
[2022-08-01 06:18] LABS: ALBUMIN 2.2 g/dL (3.4-5.0); BILIRUBIN,DIRECT 0.2 mg/dL (0.0-0.2); BILIRUBIN,TOTAL 0.6 mg/dL (0.2-1.0); CALCIUM, SERUM 7.8 mg/dL (8.5-10.1); CREATININE 1.4 mg/dL (0.6-1.3); MAGNESIUM 1.7 mg/dL (1.8-2.4); PHOSPHORUS 1.9 mg/dL (2.5-4.9); POTASSIUM 4.2 mmol/L (3.5-5.1)
--- NOTE | 2022-08-01 07:27 | NUR ---
ICU/RN PT RECEIVED IN BED, AWAKE, A&OX3. PT ON 4L O2 NC WITH NO SIGNS OF LABORED BREATHING SAT 100% ON BEDSIDE MONITOR, SR 97 HR. PRAJAPATI CATH IN PLACE, PATENT AND DRAINING CLEAR URINE. PT NPO AT THIS TIME. RIGHT HAND 20G AND RIGHT UA PICC LINE IN PLACE RUNNING D51/2NS AT 125CC/HR AND INSULIN DRIP AT 4.87 UNITS/HR. BED LOCKED AND IN LOWEST POSITION, CALL LIGHT WITHIN REACH, 3 SIDE RAILS UP.
[2022-08-01] MEDS ORDERED: Magnesium 1GM/D5W 100ML PREMIX 100 ML IV SCH (07:30)
[2022-08-01] MEDS ORDERED: NEUTRA PHOS 1 POWD.PACKET PO ONE (07:30)
[2022-08-01] MEDS: DEXAMETHASONE SOD PHOSPHATE 10 MG/ML VIAL IV SCH (08:11)
[2022-08-01] MEDS: FAMOTIDINE/PF INJ 20 MG/2 ML VIAL IV SCH ×2 (08:11→20:31)
[2022-08-01] MEDS: METOPROLOL TARTRATE 50 MG TABLET PO SCH ×2 (08:11→17:26)
[2022-08-01] MEDS: CITALOPRAM HYDROBROMIDE 20 MG TABLET PO SCH (08:11)
[2022-08-01] MEDS: APIXABAN 2.5 MG TABLET PO SCH ×2 (08:12→17:27)
[2022-08-01 08:38] LABS: CALCIUM, SERUM 7.7 mg/dL (8.5-10.1); CREATININE 1.5 mg/dL (0.6-1.3); POTASSIUM 3.6 mmol/L (3.5-5.1)
[2022-08-01] MEDS ORDERED: Medication Not On Formulary EA (Citalopram Hydrobromide (Citalopram Hbr) 1 TAB) PO SCH (09:00)
[2022-08-01] MEDS ORDERED: INSULIN REGULAR, HUMAN 100 UNIT/ML 3 ML VIAL SQ PRN ×2 (10:00→17:30)
[2022-08-01] MEDS ORDERED: DEXTROSE 50%-WATER 50 ML DISP.SYRIN IV PRN ×2 (10:00→20:30)
--- NOTE | 2022-08-01 10:50 | NUR ---
ICU/RN BP 169/80. HYDRALAZINE PRN IV GIVEN.
[2022-08-01] MEDS ORDERED: POTASSIUM CHLORIDE 10 MEQ TABLET.SA PO SCH (11:00)
[2022-08-01] MEDS: INSULIN GLARGINE, 100 UNIT/ML CARTRIDGE SQ SCH (11:13)
[2022-08-01] MEDS: FLUCONAZOLE IN NS 100 MG in PREMIX 1 EA IV SCH ×2 (11:18)
[2022-08-01] MEDS: CEFTRIAXONE 1 G in IV D5W 50 ML IV SCH (12:00)
--- NOTE | 2022-08-01 13:00 | NUR ---
RN/NOTE PATIENT WAS TRANSFERRED FROM ICU TO TELE ROOM 101. PATIENT A&OX2-[address] [facility]. PATIENT COVID-19 POSITIVE PCR AND RAPID, ON 4L NC, SATTING AT 96%. ALL VSS. PATIENT SR. DIET CONSISTENT CARB. IV FREDO PICC TRIPLE LUMEN PATENT, INTACT, AND FLUSHED WITH NS. PATIENT VOIDING VIA PRAJAPATI CATHETER. ALL SAFETY FALL PRECAUTIONS IN PLACE BED IN LOWEST POSITION, BED LOCK ON, BED ALARM ON, SIDE RAILS UP, CALL LIGHT WITHIN REACH, PATIENT TAUGHT HOW TO USE THE CALL LIGHT. WILL CONTINUE TO MONITOR.
[2022-08-01 15:33] LABS: CALCIUM, SERUM 8.1 mg/dL (8.5-10.1); CREATININE 1.5 mg/dL (0.6-1.3); POTASSIUM 4.3 mmol/L (3.5-5.1)
[2022-08-01] MEDS: *INSULIN REGULAR(HUMULIN R)HUM 100 UNIT/ML VIAL SQ PRN (17:27)
--- NOTE | 2022-08-01 17:33 | NUR ---
RN/NOTE BLOOD POC TEST 447 DOCTOR ARMANDO CALLED NEW ORDERS GIVEN AND CARRIED OUT. 8 ADDITIONAL UNITS ON TOP OF SLIDING SCALE OF 10 UNITS. BLOOD GLUCOSE TEST ORDERED FOR TWO HOURS TO RECHECK.
--- NOTE | 2022-08-01 17:50 | NUR ---
RN/NOTE PATIENT RECEIVED SOME ICE WATER. ANTIBIOTIC WERE DUE TO BE GIVEN AT 1200 THEY WERE RUN LATE THE PATIENT WAS TRANSFERRED AT 1300 AND I HAD TO ORDER AN IV PUMP FROM [facility].
--- NOTE | 2022-08-01 18:48 | NUR ---
RN/CLOSING NOTE ALL CARE ENDORSED TO FLIGHT STEWARD RN. PATIENT RESTING COMFORTABLY ON THE BED. ALL VSS. ALL SAFETY FALL PRECAUTIONS IN PLACE. ENDORSED TO START BICARB PER DOCTORS ORDERS.
--- NOTE | 2022-08-01 19:30 | NUR ---
HAIR BLENDER OPENING NOTE RECEIVED PT IN BED, AWAKE, A&OX3. PT ON 4L O2 NC, TOLERATING WELL, NO S/S OF ACUTE DISTRESS. PT ON TELE MONITOR READING SR.IV ACCESS IS FREDO PICC, PT HAS PRAJAPATI CATH DRAINING CLEAR YELLOW URINE. ALL HOSPITAL SAFETY PRECAUTIONS IN PLACE. BED IS LOCKED IN LOWEST POSITION, 3 SIDE RAILS UP, CALL LIGHT WITHIN REACH. WILL CONTINUE TO MONITOR THROUGHOUT SHIFT
[2022-08-01] MEDS: Sodium Bicarbonate 100 MEQ in IV 1/2NS 1000 ML 1,000 ML IV SCH (19:33)
--- NOTE | 2022-08-01 20:19 | NUR ---
RN NOTE LAB CALLED WITH CRITICAL GLUCOSE OF 512. DIRECTOR FINANCIAL SYSTEMS KRISTEN DONNELLY NOTIFIED AND CHANGED FROM SSI MODERATE TO AGGRESSIVE. AND TO GIVE 20 UNITS OF INSULIN
[2022-08-01] MEDS ORDERED: *INSULIN REGULAR(HUMULIN R)HUM 100 UNIT/ML VIAL SQ PRN (20:30)
[2022-08-01] MEDS: INSULIN REGULAR, HUMAN 100 UNIT/ML 3 ML VIAL SQ PRN (20:44)
[2022-08-01] MEDS ORDERED: INSULIN GLARGINE, 100 UNIT/ML CARTRIDGE SQ SCH (22:00)
--- NOTE | 2022-08-01 22:10 | NUR ---
RN NOTE BS 354. PER CHARGE GINNY DO NOT GIVE COVERAGE SINCE 20 UNITS WAS GIVEN 20 UNITS OF INSULIN WAS GIVEN AT 2044 Addendum: 08/01/22 at 2319 by DUNCAN RAMOS RN PER LUNCH WAGON OPERATOR GIVE RECOMMENDED DOSE AFTER ALL OF 10 UNITS INSULIN BS 354
[2022-08-02] VITALS: BP 167/84
[2022-08-02] MEDS: hydrALAZINE HCL IV 20 MG VIAL IV PRN (00:54)
[2022-08-02 04:00] VITALS: BP 148/71
[2022-08-02] MEDS: Sodium Bicarbonate 100 MEQ in IV 1/2NS 1000 ML 1,000 ML IV SCH ×2 (04:01→14:45)
--- NOTE | 2022-08-02 06:42 | NUR ---
SAP SENIOR DEVELOPER CLOSING NOTE ALL DUE MEDS GIVEN. PATIENT ABLE TO MAKE NEEDS KNOWN. ALL VSS. TELE MONITOR READING SR 71.WILL ENDORSE TO MORNING SHIFT FOR CONTINUATION OF CARE. ALL SAFETY FALL PRE CAUTIONS IN PLACE.
[2022-08-02 06:58] LABS: BASOPHILS % (AUTO) 0.1 % (0.0-2.0); HEMATOCRIT 30 % (33-45); LYMPHOCYTES % (AUTO) 6.4 % (20.0-44.0); MEAN CORPUSCULAR HGB CONC 34 g/dl (31.0-36.0); MEAN CORPUSCULAR VOLUME 88 fL (82-100); MONOCYTES # (AUTO) 1.1 K/uL (0.1-1.30); MONOCYTES % (AUTO) 6.6 % (2.0-12.0); NEUTROPHILS % (AUTO) 86.9 % (43.0-81.0); PLATELET COUNT (AUTO) 183 K/uL (150-450); RED BLOOD CELL COUNT(AUTO) 3.36 MIL/uL (4.0-5.2); WHITE BLOOD COUNT (AUTO) 16.1 K/uL (4.3-11.0)
[2022-08-02 07:25] LABS: CALCIUM, SERUM 8.3 mg/dL (8.5-10.1); CREATININE 1.3 mg/dL (0.6-1.3); MAGNESIUM 2.1 mg/dL (1.8-2.4); PHOSPHORUS 2.1 mg/dL (2.5-4.9); POTASSIUM 3.2 mmol/L (3.5-5.1)
--- NOTE | 2022-08-02 07:30 | NUR ---
telecom analyst opening note patient is alert and oriented x4.patient is Cameroonian speaking and able to make needs known. patient has picc line on right arm. patient is on tele monitor at sinus rhythm. iv patent and flushing well. patient is on nasal cannula tolerating well at above 95%. Stubbs catheter in place. yellow color draining to gravity.all safety measures in place. call light within reach.bed locked at lowest postion. bedside table next to patient.
[2022-08-02] MEDS: BLOOD SUGAR DIAGNOSTIC 1 EACH STRIP IN SCH ×4 (07:44→22:42)
[2022-08-02] MEDS: INSULIN REGULAR, HUMAN 100 UNIT/ML 3 ML VIAL SQ PRN ×3 (07:54→18:19)
[2022-08-02 08:00] VITALS: BP 149/73
[2022-08-02] MEDS: CITALOPRAM HYDROBROMIDE 20 MG TABLET PO SCH (09:00)
[2022-08-02] MEDS: FAMOTIDINE/PF INJ 20 MG/2 ML VIAL IV SCH ×3 (09:00→20:12)
[2022-08-02] MEDS: METOPROLOL TARTRATE 50 MG TABLET PO SCH ×2 (09:00→16:46)
[2022-08-02] MEDS: DEXAMETHASONE SOD PHOSPHATE 10 MG/ML VIAL IV SCH (09:01)
[2022-08-02] MEDS: APIXABAN 2.5 MG TABLET PO SCH ×2 (09:07→16:48)
[2022-08-02] MEDS ORDERED: K PHOS NEUTRAL 250 MG TABLET PO ONE (10:00)
[2022-08-02] MEDS ORDERED: POTASSIUM CHLORIDE 20 MEQ TAB.PRT.SR PO SCH (10:00)
[2022-08-02] MEDS: INSULIN GLARGINE, 100 UNIT/ML CARTRIDGE SQ SCH (10:08)
[2022-08-02 12:00] VITALS: BP 165/78
[2022-08-02] MEDS ORDERED: INSULIN GLARGINE, 100 UNIT/ML CARTRIDGE SQ ONE (13:00)
--- NOTE | 2022-08-02 14:08 | NUR ---
critical lab glucose 462.notifed .dr jeong said to give 20 units lantus
[2022-08-02 15:47] LABS: CALCIUM, SERUM 8.2 mg/dL (8.5-10.1); CREATININE 1.6 mg/dL (0.6-1.3); POTASSIUM 3.7 mmol/L (3.5-5.1)
[2022-08-02 16:00] VITALS: BP 166/84
--- NOTE | 2022-08-02 16:10 | NUR ---
said to recheck blood sugar after 2 hours. said to give 10 units of regular insulin
[2022-08-02] MEDS: INSULIN REGULAR, HUMAN 100 UNIT/ML 3 ML VIAL SQ SCH (16:41)
--- NOTE | 2022-08-02 18:04 | NUR ---
patient blood pressure systolic greater than 160. aware, asked if metoprol and hydrazaline can be given. said to hold hydralazine for now and give metoprol
--- NOTE | 2022-08-02 18:04 | NUR ---
rechecked blood sugar 335
--- NOTE | 2022-08-02 18:26 | NUR ---
television tube inspector note spoke with . notified him that patient wants Rizo catheter to be removed per patient request and said patient has burning pain because of Rizo catheter. said ok to remove rizo cathether. removed rizo catheter. said that bladder scanner will be needed in 6 hours to check urine output. if no urine output , Rizo catheter will have to be reinserted
--- NOTE | 2022-08-02 18:30 | NUR ---
ACCUCHECKS AND INSULIN GIVEN BS 171 4 units BS 267 9 units BS 378 20 units BS 462 21 units BS 437 10 units BS 335 16 units
--- NOTE | 2022-08-02 18:45 | NUR ---
telephone directory deliverer closing note patient is alert and oriented x4. all needs met. patient is sinus rhythm on tele monitor. patient has picc line on right upper arm. iv patent and flushing well. patient currently doesn't have Stubbs catheter at this time. patient is 95% on 4l nasal cannula. all safety measures in place. call light with reach. bed locked at lowest position beside rails up x2.
--- NOTE | 2022-08-02 19:30 | NUR ---
RED HAT ENGINEER OPENING NOTES RECEIVED PATIENT IN BED; AWAKE, ALERT AND ORIENTED x 3-4. PITCAIRN ISLANDER SPEAKING, UNDERSTAND SOME SWAZI. ON OXYGEN INHALATION @ 4LPM VIA NASAL CANNULA; TOLERATING WELL. BREATHING EVEN AND NONLABORED. NO SOB NOTED. NO COMPLAINTS OF PAIN OR DISCOMFORT AT THIS TIME. WITH FREDO 18G PICC LINE; PATENT AND INTACT INFUSING WITH NA BICARBONATE 50 ML 100 MEQ IN IV 0.45% NS 1L REGULATED @ 100 ML/HR; FLUSHES WELL. NO INFILTRATION NOTED. ON TELEMETRY MONITORING WITH CURRENT READING OF SR HR-79 BPM. ABLE TO MAKE NEEDS KNOWN. SAFETY AND FALL PRECAUTIONS IMPLEMENTED: CALL LIGHT AND TABLE WITHIN REACH, HOB ELEVATED, SIDE RAILS UP X2, BED IN LOWEST LOCKED POSITION. WILL CONTINUE PLAN OF CARE.
[2022-08-02 20:00] VITALS: BP 129/74
--- NOTE | 2022-08-02 22:42 | NUR ---
GLASS CLEANING MACHINE TENDER NOTES BLOOD SUGAR - 196 MG/DL; 3 UNITS OF REGULAR INSULIN GIVEN SQ PER SLIDING SCALE.
[2022-08-02] MEDS: *INSULIN REGULAR(HUMULIN R)HUM 100 UNIT/ML VIAL SQ PRN (22:45)
--- NOTE | 2022-08-02 23:06 | NUR ---
RN NOTES PATIENT REFUSED TO RECEIVE NA BICARBONATE 50 ML 100 MEQ IN IV 0.45% NS 1000. CONY PETERSON NP MADE AWARE.
--- NOTE | 2022-08-02 23:36 | NUR ---
RN NOTES CALLED PATIENT'S SON, KE LONG (NEXT OF KIN ~ [phone]), EXPLAINED THE IMPORTANCE OF FOLLOWING THE MEDICAL REGIME. SON TALKED TO HIS MOTHER, EXPLAINED THE IMPORTANCE OF FOLLOWING THE MEDICAL REG[facility]; STILL REFUSED TO RECEIVE THE IV FLUIDS DUE.
[2022-08-03] VITALS: BP 152/73
[2022-08-03] MEDS: Sodium Bicarbonate 100 MEQ in IV 1/2NS 1000 ML 1,000 ML IV SCH ×2
--- NOTE | 2022-08-03 02:07 | NUR ---
RN NOTES PATIENT FOR PSYCH CONSULT PER CONY PETERSON NP; FACE SHEET SENT TO [employer] BY HAND. FAX MACHINE (GPS) NOT WORKING.
[2022-08-03 04:00] VITALS: BP 169/73
[2022-08-03 06:52] LABS: EOSINOPHILS % (AUTO) 0.1 % (0.0-6.0); HEMATOCRIT 29 % (33-45); HEMOGLOBIN 9.9 g/dL (11.5-14.8); LYMPHOCYTES # (AUTO) 1.5 K/uL (0.8-4.8); LYMPHOCYTES % (AUTO) 8.6 % (20.0-44.0); MEAN CORPUSCULAR HGB CONC 34 g/dl (31.0-36.0); MEAN CORPUSCULAR VOLUME 88 fL (82-100); MONOCYTES # (AUTO) 1.6 K/uL (0.1-1.30); NEUTROPHILS # (AUTO) 14.3 K/uL (1.8-8.9); NEUTROPHILS % (AUTO) 82.3 % (43.0-81.0); PLATELET COUNT (AUTO) 209 K/uL (150-450); RED BLOOD CELL COUNT(AUTO) 3.33 MIL/uL (4.0-5.2); WHITE BLOOD COUNT (AUTO) 17.4 K/uL (4.3-11.0)
--- NOTE | 2022-08-03 06:55 | NUR ---
SPRAY OPERATOR CLOSING NOTES PATIENT IN BED; AWAKE, A/Ox 3-4. ON O2 INHALATION @ 4LPM VIA NASAL CANNULA; TOLERATING WELL. RESPIRATION EVEN AND NONLABORED. NO SOB NOTED. DENIES ANY PAIN OR DISCOMFORT AT THIS TIME. WITH FREDO 18G PICC LINE; PATENT, INTACT AND SALINE LOCKED. ON TELE MONITOR WITH CURRENT READING OF SR HR- 83 BPM. ALL NEEDS ATTENDED. SAFETY AND FALL PRECAUTIONS IN PLACE: CALL LIGHT AND TABLE WITHIN REACH, HOB ELEVATED, SIDE RAILS UP X2, BED IN LOWEST LOCKED POSITION. ENDORSED TO MORNING SHIFT FOR JOSH.
[2022-08-03 07:16] LABS: CALCIUM, SERUM 8.3 mg/dL (8.5-10.1); CREATININE 1.4 mg/dL (0.6-1.3)
[2022-08-03 07:19] LABS: POTASSIUM 2.7 mmol/L (3.5-5.1)
[2022-08-03] MEDS: INSULIN REGULAR, HUMAN 100 UNIT/ML 3 ML VIAL SQ SCH (07:30)
--- NOTE | 2022-08-03 07:30 | NUR ---
telecommunications professional opening note patient is alert and oriented x4.patient is on room air tolerating at 98%.patient has right picc line.patient is ambulatory.iv patent and flushing well. all safety measures in place. call light with reach. bed locked at lowest position
[2022-08-03] MEDS: BLOOD SUGAR DIAGNOSTIC 1 EACH STRIP IN SCH (07:53)
[2022-08-03 08:00] VITALS: BP 167/76
[2022-08-03] MEDS: INSULIN REGULAR, HUMAN 100 UNIT/ML 3 ML VIAL SQ PRN (08:17)
[2022-08-03] MEDS: METOPROLOL TARTRATE 50 MG TABLET PO SCH (08:17)
[2022-08-03] MEDS ORDERED: POTASSIUM CHLORIDE 20 MEQ TAB.PRT.SR PO ONE ×2 (08:30→09:00)
[2022-08-03] MEDS: FAMOTIDINE/PF INJ 20 MG/2 ML VIAL IV SCH (09:00)
[2022-08-03] MEDS: APIXABAN 2.5 MG TABLET PO SCH (09:00)
[2022-08-03] MEDS: CITALOPRAM HYDROBROMIDE 20 MG TABLET PO SCH (09:00)
[2022-08-03] MEDS ORDERED: POTASSIUM CHLORIDE 20 MEQ TAB.PRT.SR PO SCH (09:00)
[2022-08-03] MEDS ORDERED: INSULIN GLARGINE, 100 UNIT/ML CARTRIDGE SQ SCH (09:00)
[2022-08-03] MEDS: DEXAMETHASONE SOD PHOSPHATE 10 MG/ML VIAL IV SCH (09:00)
[2022-08-03] MEDS: POTASSIUM CHLORIDE 20 MEQ TAB.PRT.SR PO SCH ×2 (09:41→11:15)
--- NOTE | 2022-08-03 10:00 | NUR ---
patient refusing accuchecks and insulin.notified adenike reece
[2022-08-03 12:00] VITALS: BP 168/76
--- NOTE | 2022-08-03 12:30 | NUR ---
hospital television rental clerk note patient is refusing all medications after explaining benefits. critical lab potassium notfied . order 20 meq every hour q1 total 4 doses
--- NOTE | 2022-08-03 12:31 | NUR ---
patient leaving ama.
[2022-08-03] MEDS ORDERED: CEFEPIME 2 GM in IV D5W 100 ML IV SCH (13:00)
--- NOTE | 2022-08-03 13:02 | NUR ---
dr. jeong aware ama. patient stable vital signs.belonging list done. explained instructions from to come back to hospital if patient develops fever,nausea, vomiting, and to monitor blood sugar closely. patient and patient son verbalized understanding and signed paperwork
[2022-08-03] MEDS ORDERED: LEVO750T46 PO (17:19)
[2022-08-03] MEDS ORDERED: DEXA6TAB6 PO (17:20)
== END 2022-08-03 14:11 | disposition left against medical advice (07) | DRG 720 ==
LOC: ER 10:50 → TRANSITION 20:42 → ICU 21:02 → TELE1 08-01 12:53
PROVIDERS: ADMIT Student in an Organized Health Care Education/Training Program; ATTEND Nurse Practitioner Family
PROC: 5A09457 Assistance with Respiratory Ventilation, 24-96 Consecutive Hours, Continuous Positive Airway Pressure (ICD-10-PCS; principal; 2022-07-28)
PROC: 05HB33Z Insertion of Infusion Device into Right Basilic Vein, Percutaneous Approach (ICD-10-PCS; 2022-07-29)
PROC: 02HV33Z Insertion of Infusion Device into Superior Vena Cava, Percutaneous Approach (ICD-10-PCS; 2022-08-01)
PROC: B548ZZA Ultrasonography of Superior Vena Cava, Guidance (ICD-10-PCS; 2022-08-01)
DX: A41.89 Other specified sepsis (principal); N17.0 Acute kidney failure with tubular necrosis; J12.82 Pneumonia due to coronavirus disease 2019; D61.89 Other specified aplastic anemias and other bone marrow failure syndromes; G93.41 Metabolic encephalopathy; E11.10 Type 2 diabetes mellitus with ketoacidosis without coma; E44.1 Mild protein-calorie malnutrition; J15.9 Unspecified bacterial pneumonia; U07.1 COVID-19; I10 Essential (primary) hypertension; Z79.4 Long term (current) use of insulin; Z79.84 Long term (current) use of oral hypoglycemic drugs; E88.09 Other disorders of plasma-protein metabolism, not elsewhere classified; Z79.899 Other long term (current) drug therapy; E83.39 Other disorders of phosphorus metabolism; E83.41 Hypermagnesemia; Z53.29 Procedure and treatment not carried out because of patient's decision for other reasons; D68.59 Other primary thrombophilia; D69.59 Other secondary thrombocytopenia; R65.20 Severe sepsis without septic shock; J98.11 Atelectasis; Y95 Nosocomial condition; B37.49 Other urogenital candidiasis; E87.6 Hypokalemia; E87.1 Hypo-osmolality and hyponatremia; E87.0 Hyperosmolality and hypernatremia; E11.65 Type 2 diabetes mellitus with hyperglycemia
CPT/HCPCS: 36410; 36415; 36569; 36600; 70450-TC; 71045-TC; 76770-TC; 80048-TC; 80076-TC; 81001; 82272-TC; 82570-TC; 82607-TC; 82728-TC; 82784; 82803-TC; 82947-TC; 82962-TC; 83540-TC; 83605-TC; 83615-TC; 83735-TC; 84100-TC; 84155; 84165; 84300-TC; 84439-TC; 84443-TC; 84484-TC; 85025-TC; 85396; 85730-TC; 86022; 86140-TC; 86225; 86235; 86334; 86431-TC; 86706; 86803; 87040-TC; 87086-TC; 87340; 94660; 94799-TC; 99082-TC; A4216; C9113; C9803; G0378; G0480; J0360; J0692; J0696; J1100; J1450; J1644; J1815; J2405; J3370; J3475; J3480; J3490; J7030; J7042; J7050; J7060; U0003

== ENCOUNTER 2023-05-15 13:06 | Emergency (ER) | payer MEDICAID ==
[~2023-05-15] VITALS: Ht 165.1 cm; Wt 72.6 kg
[~2023-05-15 13:06] MED LIST: CITA40TA11 PO; DEXA6TAB6 PO; FURO20TA4 PO; ICOS1CAP PO; INSU100I26 SQ; LEVO750T46 PO; LISI20TA30 PO; LORA-259 PO; LOSA1TAB39 PO; METF-440 PO; METO50TA16 PO; QUET200T84 PO; SITA100T PO
--- NOTE | 2023-05-15 14:22 | NUR ---
PANTOGRAPHER AT BEDSIDE
[2023-05-15] MEDS ORDERED: IBUP-1955 PO (15:18)
[2023-05-15 16:18] VITALS: BP 136/71
== END 2023-05-15 16:19 | disposition home or self-care (01) ==
LOC: ER 13:08
DX: S52.591A Other fractures of lower end of right radius, initial encounter for closed fracture (principal); S52.615A Nondisplaced fracture of left ulna styloid process, initial encounter for closed fracture; S00.83XA Contusion of other part of head, initial encounter; I10 Essential (primary) hypertension; E78.5 Hyperlipidemia, unspecified; E11.9 Type 2 diabetes mellitus without complications; Z60.2 Problems related to living alone; Z79.899 Other long term (current) drug therapy; Z79.4 Long term (current) use of insulin; Z79.84 Long term (current) use of oral hypoglycemic drugs; W01.0XXA Fall on same level from slipping, tripping and stumbling without subsequent striking against object, initial encounter; Y93.89 Activity, other specified; Y92.89 Other specified places as the place of occurrence of the external cause; Y99.8 Other external cause status
CPT/HCPCS: 70450-TC; 70486-TC; 71045-TC; 72170-TC; 73110

== ENCOUNTER 2024-08-24 18:26 | Emergency (ER) | payer MEDICAID ==
[~2024-08-24] VITALS: Ht 167.6 cm; Wt 70.8 kg
[~2024-08-24 18:26] MED LIST changes: +IBUP-1955 PO
[2024-08-24 18:56] VITALS: TEMP 98
[2024-08-24] MEDS ORDERED: ONDANSETRON HCL/PF 4 MG/2 ML VIAL ONE (19:19)
[2024-08-24] MEDS ORDERED: MORPHINE SULFATE INJ 4 MG/ML DISP.SYRIN ONE (19:19)
[2024-08-24] MEDS ORDERED: hydrALAZINE HCL IV 20 MG VIAL ONE ×2 (19:19→21:26)
[2024-08-24 19:21] LABS: BASOPHILS # (AUTO) 0.1 K/uL (0.0-0.2); BASOPHILS % (AUTO) 0.7 % (0.0-2.0); EOSINOPHILS # (AUTO) 0.1 K/uL (0.0-0.7); EOSINOPHILS % (AUTO) 1.1 % (0.0-6.0); HEMATOCRIT 38 % (33-45); HEMOGLOBIN 12.8 g/dL (11.5-14.8); LYMPHOCYTES # (AUTO) 2.1 K/uL (0.8-4.8); LYMPHOCYTES % (AUTO) 26.5 % (20.0-44.0); MEAN CORPUSCULAR HEMOGLOBIN 32 PG (26.0-33.0); MEAN CORPUSCULAR HGB CONC 34 g/dl (31.0-36.0); MEAN CORPUSCULAR VOLUME 93 fL (82-100); MONOCYTES # (AUTO) 0.4 K/uL (0.1-1.30); MONOCYTES % (AUTO) 5.2 % (2.0-12.0); NEUTROPHILS # (AUTO) 5.2 K/uL (1.8-8.9); NEUTROPHILS % (AUTO) 66.5 % (43.0-81.0); PLATELET COUNT (AUTO) 241 K/uL (150-450); RED BLOOD CELL COUNT(AUTO) 4.05 MIL/uL (4.0-5.2); RED CELL DISTRIBUTION WIDTH 13.3 % (11.5-15.0); WHITE BLOOD COUNT (AUTO) 7.8 K/uL (4.3-11.0)
[2024-08-24] MEDS: hydrALAZINE HCL IV 20 MG VIAL IV ONE ×2 (19:30→21:49)
[2024-08-24] MEDS: ONDANSETRON HCL/PF 4 MG/2 ML VIAL IVP ONE (19:31)
[2024-08-24] MEDS: MORPHINE SULFATE INJ 2 MG/ML DISP.SYRIN IV ONE (19:33)
[2024-08-24 19:37] LABS: INR 0.94 (0.91-1.10); PROTHROMBIN TIME 9.7 SECS (9.2-11.1)
[2024-08-24 20:07] LABS: CALCIUM, SERUM 9.4 mg/dL (8.5-10.1); CARBON DIOXIDE 19 mmol/L (21-32); CHLORIDE 103 mmol/L (98-107); CREATININE 0.8 mg/dL (0.6-1.3); GLUCOSE 298 mg/dL (74-106); POTASSIUM 3.3 mmol/L (3.5-5.1); SODIUM SERUM 138 mmol/L (136-145); UREA NITROGEN, BLOOD 12 mg/dL (7-18)
[2024-08-24 20:13] LABS: ALANINE AMINOTRANSFERASE 22 U/L (12-78); ALBUMIN 3.9 g/dL (3.4-5.0); ALKALINE PHOSPHATASE 69 U/L (46-116); ASPARTATE AMINOTRANSFERASE 18 U/L (15-37); BILIRUBIN,DIRECT 0.1 mg/dL (0.0-0.2); TOTAL PROTEIN, SERUM 6.9 g/dL (6.4-8.2)
[2024-08-24] MEDS ORDERED: IOHEXOL-350 100 ML VIAL IV ONE (20:16)
[2024-08-24] MEDS ORDERED: IV NS 0.9% 250 ML IV ONE (20:16)
[2024-08-24] MEDS ORDERED: CT SWABBABLE VALVE TRANS SET 1 EA INFUS.SET MC ONE (20:16)
[2024-08-24] MEDS ORDERED: diphenhydrAMINE HCL 50 MG/ML VIAL ONE (21:20)
[2024-08-24] MEDS: diphenhydrAMINE HCL 50 MG/ML VIAL IV ONE (21:25)
[2024-08-24] MEDS ORDERED: TRAM50TA2 PO (21:49)
[2024-08-24] MEDS: LORAZEPAM INJ 2 MG/ML VIAL IV ONE (22:54)
[2024-08-24 22:56] VITALS: BP 153/85; O2SAT 100
[2024-08-24 23:05] LABS: APPEARANCE,URINE CLEAR (CLEAR); BLOOD, URINE NEGATIVE Ery/uL (NEGATIVE); COLOR,URINE YELLOW (YELLOW); PROTEIN,URINE NEGATIVE (NEGATIVE); UGLUCOSE 2+ mg/dL (NEGATIVE)
[2024-08-24 23:06] LABS: BILIRUBIN,URINE NEGATIVE (NEGATIVE); KETONES,URINE 3+ mg/dL (NEGATIVE); LEUKOCYTE ESTERASE ,URINE NEGATIVE (NEGATIVE); NITRITE, URINE NEGATIVE (NEGATIVE); UROBILINOGEN,URINE 0.2 EU/dL (0.2)
[2024-08-24 23:13] LABS: ADD URINE CULTURE NO; BACTERIA,URINE Rare /HPF (None Seen); RBC,URINE 0-2 /HPF (0-2); SQUAMOUS EPITHELIAL CELL,UR Few /HPF (None Seen); WBC,URINE 0-2 /HPF (0-3)
== END 2024-08-24 22:55 | disposition home or self-care (01) ==
LOC: ER 18:29
DX: S32.019A Unspecified fracture of first lumbar vertebra, initial encounter for closed fracture (principal); I10 Essential (primary) hypertension; X58.XXXA Exposure to other specified factors, initial encounter; Y93.89 Activity, other specified; Y92.89 Other specified places as the place of occurrence of the external cause; Y99.8 Other external cause status
CPT/HCPCS: 99285; 72125; 96374; 96375; 71045; 93005; 72131; 72128; 70498; 70496; 85025; 80048; 80076; 81001; 36415; 84443; 84484; 85730; 96376; J1200; J0360 ×2; J2270; J2405; J7050; Q9967

== ENCOUNTER 2025-08-25 11:53 | Inpatient (IN) | payer MEDICAID ==
[2025-08-25] VITALS (8 sets, daily range): BP systolic 150–184; BP diastolic 65–98; TEMP 98.2–98.3; O2SAT 96–99
[~2025-08-25] VITALS: Ht 167.6 cm; Wt 64.9 kg
[~2025-08-25 11:53] MED LIST changes: +TRAM50TA2 PO
[2025-08-25 12:16] LABS: PLATELET COUNT (AUTO) 322 K/uL (150-450); RED BLOOD CELL COUNT(AUTO) 4.92 MIL/uL (4.0-5.2); RED CELL DISTRIBUTION WIDTH 12.8 % (11.5-15.0); WHITE BLOOD COUNT (AUTO) 9.7 K/uL (4.3-11.0)
[2025-08-25 12:44] LABS: ASPARTATE AMINOTRANSFERASE 11 U/L (15-37); CALCIUM, SERUM 9.1 mg/dL (8.5-10.1); CREATININE 1.2 mg/dL (0.6-1.3); SODIUM SERUM 132 mmol/L (136-145); TOTAL PROTEIN, SERUM 8.0 g/dL (6.4-8.2); UREA NITROGEN, BLOOD 9 mg/dL (7-18)
[2025-08-25 12:46] LABS: FRACTIONATED INSPIRED OXYGEN-V 21.0 %; SITE, VBG Other; VBG BASE EXCESS -15.4 mmol/L (-2.0-3.0); VBG HCO3 10.1 mmol/L (22.0-29.0); VBG MetHb 0.2 % (0.5-1.5); VBG OXYGEN SATURATION 65.9 % (60.0-85.0); VBG PCO2 24.5 mmHg (38.0-54.0); VBG PH 7.233 (7.320-7.430); VBG PO2 35.4 mmHg (23.0-48.0); VBG TOTAL HEMOGLOBIN 15.7 G/dL (12.0-16.0)
[2025-08-25] MEDS ORDERED: INSULIN REGULAR, HUMAN 100 UNIT/ML 10 ML VIAL ONE (12:49)
[2025-08-25] MEDS: INSULIN REGULAR, HUMAN 100 UNIT/ML 10 ML VIAL IV ONE (13:00)
[2025-08-25] MEDS: ONDANSETRON HCL/PF 4 MG/2 ML VIAL IVP ONE (13:04)
[2025-08-25 13:27] LABS: PHOSPHORUS 2.8 mg/dL (2.5-4.9)
[2025-08-25] MEDS: IV PREMIX NS +20MEQ KCL 1 L IV SCH (13:45)
[2025-08-25] MEDS: INSULIN REGULAR, HUMAN 100 UNIT in IV NS 0.9% 99 ML IV PRN (13:45)
[2025-08-25 13:54] LABS: APPEARANCE,URINE CLEAR (CLEAR); BLOOD, URINE Trace-lysed Ery/uL (NEGATIVE); LEUKOCYTE ESTERASE ,URINE Negative (NEGATIVE); NITRITE, URINE NEGATIVE (NEGATIVE); UGLUCOSE 500 MG/DL mg/dL (NEGATIVE)
[2025-08-25 13:57] LABS: ADD URINE CULTURE YES; YEAST,URINE Many /HPF (None Seen)
[2025-08-25] MEDS: INSULIN REGULAR, HUMAN 100 UNITS in IV NS 0.9% 100 ML IV PRN (14:32)
[2025-08-25] MEDS ORDERED: TRAM50TA2 PO (15:25)
[2025-08-25] MEDS ORDERED: BUSP10TA35 MT (15:25)
[2025-08-25] MEDS ORDERED: CLON1PAT13 TP (15:25)
[2025-08-25] MEDS ORDERED: GABA100C PO (15:25)
[2025-08-25] MEDS ORDERED: SOLI10TA7 MT (15:25)
[2025-08-25] MEDS ORDERED: MECL-182 PO (15:25)
[2025-08-25] MEDS ORDERED: DULO30CA52 MT (15:25)
[2025-08-25] MEDS ORDERED: ATOR80TA PO (15:25)
[2025-08-25] MEDS ORDERED: METF-442 PO (15:25)
[2025-08-25] MEDS ORDERED: INSU100I14 SQ (15:25)
[2025-08-25] MEDS ORDERED: CHOL100040 PO (15:25)
[2025-08-25] MEDS ORDERED: ZOLP10TA2 PO (15:25)
[2025-08-25] MEDS ORDERED: METO-357 PO (15:25)
[2025-08-25] MEDS ORDERED: IV NS 0.9% 1,000 ML BAG IV PRN (15:30)
[2025-08-25] MEDS ORDERED: MECLIZINE HCL 12.5 MG TABLET PO PRN (16:00)
[2025-08-25 16:14] LABS: CALCIUM, SERUM 9.4 mg/dL (8.5-10.1); CREATININE 1.0 mg/dL (0.6-1.3); PHOSPHORUS 1.1 mg/dL (2.5-4.9); SODIUM SERUM 136.0 mmol/L (136-145); UREA NITROGEN, BLOOD 9.0 mg/dL (7-18)
[2025-08-25] MEDS: BLOOD SUGAR DIAGNOSTIC 1 EACH STRIP IN SCH (16:28)
[2025-08-25] MEDS: METFORMIN 500 MG TABLET PO SCH (16:43)
[2025-08-25] MEDS ORDERED: Medication Not On Formulary EA (Icosapent Ethyl (Vascepa) 1 GM) PO SCH (17:00)
[2025-08-25 17:49] LABS: CALCIUM, SERUM 9.0 mg/dL (8.5-10.1); CREATININE 0.9 mg/dL (0.6-1.3); PHOSPHORUS 1.1 mg/dL (2.5-4.9); SODIUM SERUM 138.0 mmol/L (136-145); UREA NITROGEN, BLOOD 9.0 mg/dL (7-18)
[2025-08-25] MEDS: IV NS 0.9% 1,000 ML IV PRN (18:06)
[2025-08-25] MEDS: hydrALAZINE HCL IV 20 MG VIAL IV ONE (18:17)
[2025-08-25] MEDS: POTASSIUM CL. PREMIX PERIPHER. 50 ML IV SCH (18:40)
[2025-08-25] MEDS: IV D5/0.45 NACL 1,000 ML IV PRN (18:57)
[2025-08-25] MEDS: ZOLPIDEM TARTRATE 5 MG TABLET PO SCH (21:16)
[2025-08-25 21:28] LABS: CALCIUM, SERUM 8.9 mg/dL (8.5-10.1); CREATININE 0.8 mg/dL (0.6-1.3); SODIUM SERUM 139.0 mmol/L (136-145); UREA NITROGEN, BLOOD 8.0 mg/dL (7-18)
[2025-08-25 21:29] LABS: PHOSPHORUS 0.8 mg/dL (2.5-4.9)
[2025-08-25] MEDS ORDERED: POTASSIUM PHOSPHATE MM 7.5 MMOL in IV NS 0.9% 100 ML IV SCH (22:00)
[2025-08-25] MEDS ORDERED: POTASSIUM CL. PREMIX PERIPHER. 50 ML IV SCH ×2 (22:30)
[2025-08-25 23:05] LABS: CALCIUM, SERUM 8.9 mg/dL (8.5-10.1); CREATININE 0.9 mg/dL (0.6-1.3); SODIUM SERUM 139.0 mmol/L (136-145); UREA NITROGEN, BLOOD 8.0 mg/dL (7-18)
[2025-08-25] MEDS: PANTOPRAZOLE 40 MG TABLET.DR PO SCH (23:29)
[2025-08-25 23:57] LABS: PHOSPHORUS 0.8 mg/dL (2.5-4.9)
[2025-08-26] VITALS (21 sets, daily range): BP systolic 115–186; BP diastolic 50–87; TEMP 97.3–98.5; O2SAT 93–98
[2025-08-26] MEDS: K PHOS NEUTRAL 250 MG TABLET PO ONE (00:10)
[2025-08-26] MEDS ORDERED: POTASSIUM PHOSPHATE MM IV SCH (01:00)
[2025-08-26] MEDS ORDERED: NS 0.9% IV SCH (01:00)
[2025-08-26] MEDS: POTASSIUM PHOSPHATE MM 7.5 MMOL in IV NS 0.9% 100 ML IV SCH (01:16)
[2025-08-26] MEDS: hydrALAZINE HCL IV 20 MG VIAL IV ONE ×2 (01:23→03:15)
[2025-08-26] MEDS: Potassium Chloride 20 MEQ in IV D5/0.45 NACL 1,000 ML IV PRN (01:59)
[2025-08-26] MEDS: TRAMADOL HCL 50 MG TABLET PO PRN (03:39)
[2025-08-26] MEDS: ONDANSETRON HCL/PF 4 MG/2 ML VIAL IVP PRN (04:11)
[2025-08-26 04:30] LABS: CALCIUM, SERUM 8.8 mg/dL (8.5-10.1); CREATININE 0.8 mg/dL (0.6-1.3); PHOSPHORUS 1.5 mg/dL (2.5-4.9); SODIUM SERUM 138.0 mmol/L (136-145); UREA NITROGEN, BLOOD 8.0 mg/dL (7-18)
[2025-08-26 04:46] LABS: ABG BASE EXCESS -10.2 mmol/L (-2.0-3.0); ABG OXYGEN SATURATION 96.7 % (94.0-98.0); ABG PCO2 19.6 mmHg (32.0-45.0); ABG PH 7.405 (7.350-7.450); ABG PO2 87.4 mmHg (83.0-108.0); ABG TOTAL HEMOGLOBIN 13.9 G/dL (12.0-16.0); FRACTIONATED INSPIRED OXYGEN 21.0 %; SITE, ABG LEFT RADIAL
[2025-08-26] MEDS: LABETALOL 20 MG/4 ML VIAL IV ONE (05:44)
[2025-08-26] MEDS: Magnesium 1GM/D5W 100ML PREMIX 100 ML IV SCH (06:54)
[2025-08-26] MEDS ORDERED: SOLIFENACIN SUCCINATE MT SCH (09:00)
[2025-08-26] MEDS: CHOLECALCIFEROL 1,000 UNIT TABLET (VIT D3) PO SCH (09:06)
[2025-08-26] MEDS: LISINOPRIL (20MG) 20 MG TABLET PO SCH (09:07)
[2025-08-26] MEDS: LORAZEPAM 1 MG TABLET PO SCH (09:08)
[2025-08-26] MEDS: CITALOPRAM HYDROBROMIDE 20 MG TABLET PO SCH (09:08)
[2025-08-26] MEDS: LINAGLIPTIN 5 MG TABLET PO SCH (09:09)
[2025-08-26] MEDS: METOPROLOL SUCCINATE 50 MG TAB.SR.24H PO SCH (09:10)
[2025-08-26] MEDS: ATORVASTATIN 40 MG TABLET PO SCH (09:11)
[2025-08-26] MEDS: DULOXETINE HCL 30 MG CAPSULE.DR PO SCH (09:12)
[2025-08-26] MEDS: GABAPENTIN 100 MG CAPSULE PO SCH (09:12)
[2025-08-26] MEDS: FUROSEMIDE 20 MG TABLET PO SCH (09:13)
[2025-08-26] MEDS: LOSARTAN/HCTZ 50-12.5MG/ 1 EA TABLET PO SCH (09:14)
[2025-08-26] MEDS: CLONIDINE HCL 0.2MG/24H PTWK 1 EA PATCH TD SCH (09:15)
[2025-08-26 09:24] LABS: CALCIUM, SERUM 8.5 mg/dL (8.5-10.1); CREATININE 0.8 mg/dL (0.6-1.3); PHOSPHORUS 1.8 mg/dL (2.5-4.9); SODIUM SERUM 139.0 mmol/L (136-145); UREA NITROGEN, BLOOD 6.0 mg/dL (7-18)
[2025-08-26] MEDS ORDERED: Potassium Chloride 40 MEQ in IV NS 0.9% 1,000 ML IV PRN (10:30)
[2025-08-26] MEDS ORDERED: POTASSIUM CHLORIDE 10 MEQ/50 ML PREMIXED IVPB FOR PERIPHERAL LINE IV ONE (11:00)
[2025-08-26] MEDS: POTASSIUM CL. PREMIX PERIPHER. 50 ML IV SCH (11:13)
[2025-08-26] MEDS: INSULIN GLARGINE, 100 UNIT/ML CARTRIDGE SQ SCH (12:11)
[2025-08-26] MEDS ORDERED: *INSULIN REGULAR(HUMULIN R)HUM 100 UNIT/ML VIAL SQ PRN (12:30)
[2025-08-26] MEDS ORDERED: DEXTROSE 50%-WATER 50 ML DISP.SYRIN IV PRN (12:30)
[2025-08-26] MEDS: QUETIAPINE FUMARATE 100 MG TABLET PO SCH (17:07)
[2025-08-26] MEDS: BLOOD SUGAR DIAGNOSTIC 1 EACH STRIP VI SCH (17:07)
[2025-08-26] MEDS: INSULIN REGULAR, HUMAN 100 UNIT/ML 3 ML VIAL SQ PRN (17:09)
== END 2025-08-26 21:00 | disposition left against medical advice (07) | DRG 420 ==
LOC: ER 11:56 → ICU 14:40 → MED 08-26 17:20
PROVIDERS: ADMIT Nurse Practitioner Family
DX: E11.10 Type 2 diabetes mellitus with ketoacidosis without coma (principal); G93.41 Metabolic encephalopathy; E83.39 Other disorders of phosphorus metabolism; K86.89 Other specified diseases of pancreas; E87.1 Hypo-osmolality and hyponatremia; E86.0 Dehydration; E78.5 Hyperlipidemia, unspecified; E87.6 Hypokalemia; I10 Essential (primary) hypertension; Z79.84 Long term (current) use of oral hypoglycemic drugs; I70.8 Atherosclerosis of other arteries; M25.78 Osteophyte, vertebrae; Z79.4 Long term (current) use of insulin; Z53.29 Procedure and treatment not carried out because of patient's decision for other reasons; M43.8X6 Other specified deforming dorsopathies, lumbar region; M48.061 Spinal stenosis, lumbar region without neurogenic claudication
CPT/HCPCS: 36415; 71045-TC; 80048-TC; 80076-TC; 81001; 82010-TC; 82803-TC; 82962-TC; 83690-TC; 83735-TC; 84100-TC; 84484-TC; 85025-TC; 87081-TC; 87086-TC; A4223; G0378; J0360; J1815; J2405; J3475; J3480; J3490; J7030; J7050

== ENCOUNTER 2025-09-01 09:33 | Inpatient (IN) | payer MEDICAID ==
[~2025-09-01] VITALS: Ht 165.1 cm; Wt 68.9 kg
[~2025-09-01 09:33] MED LIST changes: +ATOR80TA PO; +BUSP10TA35 MT; +CHOL100040 PO; +CLON1PAT13 TP; -DEXA6TAB6 PO; +DULO30CA52 MT; +GABA100C PO; -IBUP-1955 PO; +INSU100I14 SQ; -LEVO750T46 PO; +MECL-182 PO; -METF-440 PO; +METF-442 PO; +METO-357 PO; -METO50TA16 PO; +SOLI10TA7 MT; +ZOLP10TA2 PO
[2025-09-01] MEDS: IV NS 0.9% 1,000 ML BAG IV ONE ×2 (10:02→10:53)
[2025-09-01 10:20] LABS: PLATELET COUNT (AUTO) 205 K/uL (150-450); RED BLOOD CELL COUNT(AUTO) 4.06 MIL/uL (4.0-5.2); RED CELL DISTRIBUTION WIDTH 13.0 % (11.5-15.0); WHITE BLOOD COUNT (AUTO) 9.1 K/uL (4.3-11.0)
[2025-09-01 10:21] LABS: APPEARANCE,URINE SLIGHTLY CLOUDY (CLEAR); BLOOD, URINE NEGATIVE Ery/uL (NEGATIVE); LEUKOCYTE ESTERASE ,URINE TRACE (NEGATIVE); NITRITE, URINE POSITIVE (NEGATIVE); UGLUCOSE NEGATIVE (NEGATIVE)
[2025-09-01 10:23] LABS: ADD URINE CULTURE YES
[2025-09-01 10:24] LABS: SQUAMOUS EPITHELIAL CELL,UR Few /HPF (None Seen)
[2025-09-01 10:30] LABS: INR 1.03 (0.91-1.10)
[2025-09-01 10:31] LABS: SERUM AMMONIA 35 umol/L (11-32)
[2025-09-01 10:33] LABS: CALCIUM, SERUM 8.5 mg/dL (8.5-10.1); CREATININE 0.8 mg/dL (0.6-1.3); SODIUM SERUM 142 mmol/L (136-145); UREA NITROGEN, BLOOD 14 mg/dL (7-18)
[2025-09-01 10:38] LABS: AMPHETAMINE, URINE NEGATIVE (NEGATIVE); BARBITURATE, URINE NEGATIVE (NEGATIVE); BENZODIAZEPINE, URINE NEGATIVE (NEGATIVE); CANNABINOID, URINE NEGATIVE (NEGATIVE); COCCAINE, URINE NEGATIVE (NEGATIVE); OPIATE, URINE NEGATIVE (NEGATIVE)
[2025-09-01 10:41] LABS: ALCOHOL, BLOOD < 3 mg/dL (0-10); ASPARTATE AMINOTRANSFERASE 17 U/L (15-37); TOTAL PROTEIN, SERUM 6.3 g/dL (6.4-8.2)
[2025-09-01] MEDS ORDERED: POTASSIUM CL. PREMIX PERIPHER. 50 ML ONE ×2 (10:50→10:55)
[2025-09-01] MEDS ORDERED: CEFTRIAXONE 1GM BAG (ER ONLY) 50 ML IV ONE (10:50)
[2025-09-01] MEDS: CEFTRIAXONE 1 G in IV D5W 50 ML IV ONE (10:53)
[2025-09-01] MEDS: POTASSIUM CL. PREMIX PERIPHER. 50 ML IV SCH (11:03)
[2025-09-01 11:05] VITALS: O2SAT 95
[2025-09-01] MEDS ORDERED: MAGNESIUM HYDROXIDE 30 ML UDC PO PRN (12:00)
[2025-09-01] MEDS ORDERED: Z GUARD REMEDY 4 OZ OINT TP PRN (12:00)
[2025-09-01] MEDS: CEFTRIAXONE 1 G in IV D5W 50 ML IV SCH (12:00)
[2025-09-01] MEDS ORDERED: ONDANSETRON HCL/PF 4 MG/2 ML VIAL IVP PRN (12:00)
[2025-09-01] MEDS ORDERED: MAG HYDROX/AL HYDROX/SIMETH 30 ML UDC PO PRN (12:00)
[2025-09-01] MEDS ORDERED: MECLIZINE HCL 12.5 MG TABLET PO SCH (13:00)
[2025-09-01] MEDS: IV D5/0.45 NACL 1,000 ML IV PRN (14:40)
[2025-09-01 16:00] VITALS: BP 126/71; TEMP 98.4; O2SAT 100
[2025-09-01] MEDS ORDERED: Medication Not On Formulary EA (Icosapent Ethyl (Vascepa) 1 GM) PO SCH (17:00)
[2025-09-01] MEDS: Potassium Chloride 10 MEQ, LIDOCAINE HCL/PF 1% 1 ML in IV D5W 50 ML IV SCH (17:52)
[2025-09-01] MEDS ORDERED: DEXTROSE 50%-WATER 50 ML DISP.SYRIN IV PRN (18:00)
[2025-09-01 20:00] VITALS: BP 153/76; TEMP 97.9; O2SAT 98
[2025-09-01] MEDS: MECLIZINE HCL 25 MG TABLET PO SCH (20:52)
[2025-09-01] MEDS: INSULIN REGULAR, HUMAN 100 UNIT/ML 3 ML VIAL SQ PRN (21:15)
[2025-09-01] MEDS: BLOOD SUGAR DIAGNOSTIC 1 EACH STRIP IN SCH (21:26)
[2025-09-02 07:38] LABS: PLATELET COUNT (AUTO) 203 K/uL (150-450); RED BLOOD CELL COUNT(AUTO) 3.96 MIL/uL (4.0-5.2); RED CELL DISTRIBUTION WIDTH 13.3 % (11.5-15.0); WHITE BLOOD COUNT (AUTO) 6.8 K/uL (4.3-11.0)
[2025-09-02 07:42] LABS: ASPARTATE AMINOTRANSFERASE 15.0 U/L (15-37); CALCIUM, SERUM 8.2 mg/dL (8.5-10.1); CREATININE 0.6 mg/dL (0.6-1.3); PHOSPHORUS 2.2 mg/dL (2.5-4.9); TOTAL PROTEIN, SERUM 5.6 g/dL (6.4-8.2); UREA NITROGEN, BLOOD 8.0 mg/dL (7-18)
[2025-09-02 08:00] VITALS: BP 153/81; TEMP 98.2; O2SAT 97
[2025-09-02 08:00] LABS: SODIUM SERUM 142.0 mmol/L (136-145)
[2025-09-02] MEDS: CHOLECALCIFEROL 1,000 UNIT TABLET (VIT D3) PO SCH (09:33)
[2025-09-02] MEDS: LACTULOSE 10 G/15 ML UDC (PYXIS) PO SCH (09:33)
[2025-09-02] MEDS: DULOXETINE HCL 30 MG CAPSULE.DR PO SCH (09:34)
[2025-09-02] MEDS: LISINOPRIL (20MG) 20 MG TABLET PO SCH (09:34)
[2025-09-02] MEDS: METOPROLOL SUCCINATE 50 MG TAB.SR.24H PO SCH (09:35)
[2025-09-02] MEDS: MAGNESIUM OXIDE 400 MG TABLET PO ONE (09:35)
[2025-09-02] MEDS: CITALOPRAM HYDROBROMIDE 20 MG TABLET PO SCH (09:35)
[2025-09-02] MEDS: CEFTRIAXONE 1 G in IV D5W 50 ML IV SCH (10:00)
[2025-09-02] MEDS: POTASSIUM CHLORIDE 20 MEQ TAB.PRT.SR PO ONE ×2 (10:31→12:01)
[2025-09-02 16:00] VITALS: BP 171/96; TEMP 98.8; O2SAT 97
[2025-09-02] MEDS: K PHOS NEUTRAL 250 MG TABLET PO ONE (16:11)
[2025-09-02 20:59] VITALS: BP 157/83; TEMP 98.6; O2SAT 95
[2025-09-02] MEDS: ACETAMINOPHEN 325 MG TABLET PO PRN (21:22)
[2025-09-03 06:55] LABS: CALCIUM, SERUM 8.5 mg/dL (8.5-10.1); CREATININE 0.6 mg/dL (0.6-1.3); SODIUM SERUM 147.0 mmol/L (136-145); UREA NITROGEN, BLOOD 4.0 mg/dL (7-18)
[2025-09-03 06:58] LABS: PLATELET COUNT (AUTO) 188 K/uL (150-450); RED BLOOD CELL COUNT(AUTO) 3.84 MIL/uL (4.0-5.2); RED CELL DISTRIBUTION WIDTH 13.1 % (11.5-15.0); WHITE BLOOD COUNT (AUTO) 5.4 K/uL (4.3-11.0)
[2025-09-03 08:47] VITALS: BP 150/68; TEMP 98.1; O2SAT 99
[2025-09-03 09:04] VITALS: BP 150/68
[2025-09-03] MEDS ORDERED: CEPH500C2 PO (09:18)
[2025-09-03] MEDS: MAGNESIUM OXIDE 400 MG TABLET PO ONE (09:21)
== END 2025-09-03 19:03 | disposition home or self-care (01) | DRG 463 ==
LOC: ER 09:36 → MED 12:19
PROVIDERS: ADMIT Nurse Practitioner Acute Care; ATTEND Nurse Practitioner Acute Care
DX: N39.0 Urinary tract infection, site not specified (principal); G92.8 Other toxic encephalopathy; E44.0 Moderate protein-calorie malnutrition; E88.09 Other disorders of plasma-protein metabolism, not elsewhere classified; E11.65 Type 2 diabetes mellitus with hyperglycemia; E11.649 Type 2 diabetes mellitus with hypoglycemia without coma; B96.20 Unspecified Escherichia coli [E. coli] as the cause of diseases classified elsewhere; E87.6 Hypokalemia; E78.5 Hyperlipidemia, unspecified; I10 Essential (primary) hypertension; Z79.84 Long term (current) use of oral hypoglycemic drugs; Z79.4 Long term (current) use of insulin; Z68.25 Body mass index [BMI] 25.0-25.9, adult
CPT/HCPCS: 36415; 71045-TC; 80048-TC; 80053-TC; 80076-TC; 81001; 82140-TC; 82962-TC; 83605-TC; 83735-TC; 84100-TC; 84443-TC; 84484-TC; 85025-TC; 85730-TC; 87040-TC; 87081-TC; 87086-TC; 87186-TC; 97112-TC; 97116-TC; 97530-TC; A4223; G0378; G0480; J0696; J1815; J3480; J3490; J7030; J7060; J8597